=== PATIENT | male | born 1950 | race Caucasian/White ===

== ENCOUNTER 2024-04-03 08:08 | Outpatient (OUT) | payer MEDICARE, SELFPAY ==
--- NOTE | 2024-04-03 08:18 | CT_ITS ---
[address] [address] Patient Name: ALF VERAS MRN: [id number] date: 1950 Sex: M Assigned Patient Location: LAB Current Patient Location: LAB Accession/Order Number: [id number] Exam Date: 04/03/2024 08:35 Report Date: 04/03/2024 12:17 At the request of: COLLEEN CHEUNG Procedure: CT angio abdomen pelvis CT angio abdomen pelvis, 04/03/2024 8:35 AM EDT INDICATION: Aortic Aneurysm Without Rupture I71.40 COMPARISON: Prior CTA of the abdomen dated 04/01/2023 TECHNIQUE: Axial images of the abdomen and pelvis were obtained after the administration of IV contrast. Multiplanar reformatted images were generated and reviewed as needed. 3-D images were obtained. Dose reduction techniques were achieved by using automated exposure control and/or adjustment of mA and/or kV according to patient size and/or use of iterative reconstruction technique. FINDINGS: Lungs: The base of lungs is clear. No pleural effusion is noted. Liver and gallbladder: The liver is unremarkable. There is cholelithiasis without pericholecystic fluid or wall thickening. No enlargement of intra or extrahepatic biliary ducts. Genitourinary system: No hydronephrosis. 7 mm nonobstructive nephrolithiasis in the midpole of the right kidney is noted. Stable simple cyst in the inferior pole of the right kidney. No abnormality of the urinary bladder is noted. Other solid abdominal organs: adrenal glands, pancreas, and spleen are unremarkable. 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 The SMA renal arteries and K[place] are unremarkable. Stable ectasia of the distal abdominal aorta is measured noted measuring 2.6 x 2.1 cm. No aneurysm of the iliac arteries is noted. There is diffuse atherosclerotic changes in the common iliac arteries and distal aorta. Free fluid: There is no free fluid in the abdomen pelvis. Lymph node: No lymph node enlargement by size criteria is noted. Stomach and Bowel: Mild hiatal hernia is noted. No abnormality of the stomach is noted. There is colonic diverticulosis. Otherwise, no significant abnormality of the small or large bowel is noted. Fat-containing umbilical hernia is noted measuring 1.3 cm in transverse diameter. Bone: There is no suspicious osteolytic or osteoblastic lesion. There is diffuse demineralization of bone. Degenerative changes in the SI joints and lower lumbar spine are noted. Sclerotic lesions within the iliac bones likely bone islands are stable. Stable postoperative changes at the level of L2-L3 and L3-L4. 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 Stable ectasia of the infrarenal abdominal aorta. Electronically authenticated by: CORDELL IRIZARRY Date: 04/03/2024 12:17
[2024-04-03 08:23] LABS: Estimated GFR (African America >60 (>=60); Estimated GFR (Non-African Ame >60 (>=60)
== END 2024-04-03 08:09 | disposition home or self-care (01) ==
LOC: LAB 08:08
PROVIDERS: PCP Physician Assistant; Visit Provider Physician Assistant
DX: I72.8 Aneurysm of other specified arteries (principal); I71.40 Abdominal aortic aneurysm, without rupture, unspecified; I10 Essential (primary) hypertension
CPT/HCPCS: 36415; 74174; 82565; Q9967

== ENCOUNTER 2025-01-19 14:51 | Outpatient (OUT) | payer MEDICARE, SELFPAY ==
--- OUTSIDE RECORDS SUMMARY | 2025-01-19 14:58 | XMS_ITS | CCD ---
Author Organization [facility] CliniSyid Care Team Providers Care 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 Name Role Phone Unavailable, Family Physician Primary Care Physi christine Unavailable AURORA CHEUNG Primary Care Physician RHONDA DOTSON Attending Unavailable UGALDE ., DR HOLLINGSWORTH Admitting Unavailable UGALDE ., DR HOLLINGSWORTH Attending Unavailable MISC, DR DIAS Primary Care Unavailable UGALDE ., DR HOLLINGSWORTH Consulting Unavailable JONH LOPEZ Consulting Unavailable UGALDE ., DR HOLLINGSWORTH Admitting Unavailable UGALDE ., DR HOLLINGSWORTH Attending Unavailable MISC, DR DIAS Primary Care Unavailable UGALDE ., DR HOLLINGSWORTH Consulting Unavailable RHONDA DOTSON Admitting Unavailable RHONDA DOTSON Attending Unavailable MISC, DR DIAS Primary Care Unavailable RHONDA DOTSON Consulting Unavailable RHONDA DOTSON Admitting Unavailable RHONDA DOTSON Attending Unavailable MISC, DR DIAS Primary Care Unavailable JOHNATHAN, DR KENNY Zavala Consulting Unavailable RHONDA DOTSON Consulting Unavailable ARIADNE, DR PETERS Admitting Unavailable ARIADNE, DR PETERS Attending Unavailable SLOANC, DR DIAS Primary Care Unavailable ARIADNE, DR PETERS Consulting Unavailable JOHNATHAN, DR KENNY Zavala Consulting Unavailable UGALDE ., DR HOLLINGSWORTH Admitting Unavailable UGALDE ., DR HOLLINGSWORTH Attending Unavailable MISC, DR DIAS Primary Care Unavailable UGALDE ., DR HOLLINGSWORTH Consulting Unavailable CELINA CALVIN Consulting Unavailable MUMTAZ JAUREGUI Consulting Unavailable JONATAN, DR AURORA Bergman Consulting Unavailable MISC, DR DIAS Primary Care Unavailable PAY ., DR NORWOOD Admitting Unavailable PAY ., DR NORWOOD Attending Unavailable PAY ., DR NORWOOD Consulting Unavailable UGALDE ., DR HOLLINGSWORTH Admitting Unavailable UGALDE ., DR HOLLINGSWORTH Attending Unavailable MISC, DR DIAS Primary Care Unavailable UGALDE ., DR HOLLINGSWORTH Consulting Unavailable Tal Monroe MD Unavailable Tal Monroe MD Primary Care Provider [phone] AURORA CHEUNG Primary Care Unavailable AURORA CHEUNG Primary Care Unavailable AURORA CHEUNG Referring Unavailable Nu Velez Attending Unavailable AURORA CHEUNG Primary Care Unavailable Nu Velez Admitting Unavailable Nu Velez Attending Unavailable Nu Velez Referring Unavailable HemAurora Hutton Unavailable Tal Monroe MD Primary Care Provider [phone] NU SAN Attending Unavailable NU SAN Attending Unavailable TAL MONROE Referring Unavailable AURORA CHEUNG Attending Unavailable NU SAN Attending Unavailable ERIC NAJERA Attending Unavailable GEOVANNY BAREU Attending Unavailable AURORA CHEUNG Attending Unavailable ALEX THOMPSON Attending Unavailcha osman Unavailable Unavailable Unavailable Allergies Allergy Classification Reported Allergen(s) Allergy Type Date of Onset Reaction(s) Facility (12 sources) Hydroxychloroquine Drug Allergy 3 [facility] Work Phone: Medications Current Medications Medication Drug Class(es) Dates Sig (Normalized) Sig (Original) acetaminophen 325 mg / oxyCODONE hydrochloride 5 mg oral tablet (1 source) Opioid Agonist Start: 02-02-2020 take 1 tablet by mouth every four to six hours as needed oxyCODONE HCl 5mg & Acetaminophen 325mg * (Percocet 5mg/325mg Tablet *) 1 EACH TABLET Active 1 Oral EVERY 4-6 HRS PRN as needed for post op pain 30 February 02, 2020 2:46pm amitriptyline hydrochloride 25 mg oral tablet (17 sources) Tricyclic Antidepressant Start: 07-31-2024 take 1 tablet by mouth at bedtime amitriptyline (Elavil) 25 MG tablet Indications: Difficulty sleeping Take 1 tablet (25 mg) by mouth at bedtime 100 tablet 3 07/31/2024 Active Start: 07-03-2022 take 1 tablet by sen th at bedtime amitriptyline (Elavil) 25 MG tablet Indications: Difficulty sleeping Take 1 tablet (25 mg) by mouth at bedtime. 100 tablet 3 07/06/2023 Active amLODIPine 10 mg oral tablet (1 source) Dihydropyridine Calcium Channel Ramiro take 10 tablets by mouth once daily Amlodipine Besylate * (Norvasc *) 10 MG TABLET Active 10 Oral EVERY DAY for HTN aspirin 81 mg delayed release oral tablet (1 source) Platelet Aggregation Inhibitor, Nonsteroidal Anti-inflammatory Drug Aspirin * (Aspiri n Enteric Coated *) 81 MG TABLET. Active 81 Oral EVERY DAY for PREVENTIVE carisoprodol 350 mg oral tablet (1 source) Muscle Relaxant Start: 02-02-20 Carisoprodol * (Soma 350mg Tablet*) 350 MG TABLET Active 350 Oral TWICE DAILY NEEDED as needed for spasms 14 February 02, 2020 2:46pm carvedilol 3.125 mg oral tablet (13 sources) alpha-Adrenergic Ramiro, beta-Adrenergic Ramiro Start: 05-12-20 take 1 tablet by mouth in the morning carvedilol (Coreg) 3.125 MG tablet Take 3.125 mg by mouth in the morning and 3.125 mg in the evening. Take with meals. 05/12/2024 Active Start: 01-03-2024 take 1 tablet by sen th twice daily carvedilol 3.125 mg Tab 3.125 mg = 1 tab(s), Oral, BID, Refills(s) 0, High blood pressure Start Date: 01/03/24 Status: Ordered Start: 01-03-2024 carvedilol 3.1 25 mg Tab 3.125 mg = 1 tab(s), Refills(s) 0 Start Date: 01/03/24 Status: Ordered cholecalciferol 0.05 mg oral capsule (5 sources) Vitamin D take 1 capsule by mouth once daily cholecalciferol (Vitamin D-3) 50 MCG (1999 UT) capsule Take 2,000 Units by mouth Daily Active diclofenac sodium 75 mg delayed release oral tablet (17 sources) Nonsteroidal Anti-inflammatory Drug Start: take 1 tablet by mouth in the morning diclofenac (Voltaren) 75 MG EC tablet Indications: Primary osteoarthritis involving multiple joints Take 1 tablet (75 mg) by mouth in the morning and 1 tablet (75 mg) before bedtime. 200 tablet 3 10/23/2024 Active Start: 07-03-2022 take 1 tablet by sen th in the morning diclofenac (Voltaren) 75 MG EC tablet Indications: Primary osteoarthritis involving multiple joints Take 1 tablet (75 mg) by mouth in the morning and 1 tablet (75 mg) before bedtime. 200 tablet 3 07/06/2023 Active esomeprazole 20 mg delayed release oral capsule (12 sources) Proton Pump Inhibitor take 1 capsule by mouth every twenty-four hours as needed esomeprazole (NexIUM) [address] capsule 1 capsule Daily as needed. Active hydroCHLOROthiazide 12.5 mg / lisinopril 20 mg oral tablet (20 sources) Thiazide Diuretic, Angiotensin Converting Enzyme Inhibitor Start: 2023 take 1 tablet by mouth once lisinopril-hydroCH LOROthiazide 20-12.5 MG tablet Indications: Benign essential hypertension (CMS/HCC) Take 1 tablet by mouth every 12 (twelve) hours 200 tablet 3 07/31/2024 Active Start: 07-06-2023 take 1 tablet by sen th once lisinopril-hydroCHLOROthiazide 20-12.5 M G tablet Indications: Benign essential hypertension (CMS/HCC) Take 1 tablet by mouth every 12 (twelve) hours. 200 tablet 3 07/06/2023 Active Start: 07-03-2022 hydrochlorothi azide-lisinopril 12.5 mg-20 mg Tab Refill(s) 0 Start Date: 07/03/22 Status: Ordered Start: 06-14-2015 hydrochlorothi azide-lisinopril 12.5 mg-20 mg Tab 1 tab(s), Oral, Daily, 90 tab(s), Refill(s) 0, High blood pressure Start Date: 06/14/15 Status: Ordered take 1 tablet by sen th twice daily, then take 1 tablet by mouth Lisinopril 20mg & HCTZ 12.5mg * (Zestore tic 20mg/12.5mg *) 1 EACH TABLET Active 1 Oral 2 TIMES DAILY for HTN ammonium lactate 120 mg/ml topical cream (9 sources) Start: 12-15-2023 End: 12-14-2024 ammonium lactate (Lac-Hydrin) 12 % cream Indications: Dry skin Apply topically if needed for dry skin 240 g 3 12/15/2023 11/29/2024 Discontinued (Therapy completed) polyethylene glycol 3350 004256 mg / potassium chloride 1480 mg / sodium bicarbonate 5720 mg / sodium chloride 09198 mg powder for oral solution (1 source) Osmotic Laxative Start: 01-03-2024 take 1 dose by mouth once NuLYTELY [place] oral powder for reconstitution See Instructions, 1 EA, Refill(s) 0, Per physcisians instructions prior to colonoscopy, [facility], 190, cm, 01/03/24 10:17:00 EST, Height/Length Dosing, 101, kg, 01/03/24 10:17:00 EST, Weight Dosing Start Date: 01/03/24 Status: Ordered pyridoxine (12 sources) Start: 07-03-2022 take 1 tablet by mouth once daily Pyridoxine HCl (VITAMIN B-6 PO) Take 1 tablet by mouth 1 (one) time each day. 07/03/2022 Active Start: 07-03-2022 take 1 tablet by sen th once daily Pyridoxine HCl (VITAMIN B-6 PO) Take 1 tablet by mouth 1 (one) time each day. 0 07/03/2022 Active rosuvastatin calcium 20 mg oral tablet (18 sources) HMG-CoA Reductase Inhibitor Start: 08-01-2024 take 1 tablet by mouth once daily rosuvastatin (Crestor) 20 MG tablet Indications: Mixed hyperlipidemia (CMS/HCC) Take 1 tablet (20 mg) by mouth 1 (one) time each day at the same time 100 tablet 3 08/01/2024 Active Start: 07-06-2023 take 1 tablet by sen th once daily rosuvastatin (Crestor) 20 MG tablet Indications: Mixed hyperlipidemia (CMS/HCC) Take 1 tablet (20 mg) by mouth 1 (one) time each day at the same time. 100 tablet 3 07/06/2023 Active Start: 06-14-2015 take 1 tablet by sen th once daily Crestor 10 mg Tab 10 mg = 1 tab(s), Oral, Daily, # 90 tab(s), Refills(s) 0, High cholesterol Start Date: 06/14/15 Status: Ordered Rosuvastatin Pedro cium * (Crestor *) 20 MG TABLET Active 20 Oral AT BEDTIME tamsulosin hydrochloride 0.4 mg oral capsule (2 sources) alpha-Adrenergic Ramiro Start: 07-03-2022 take 1 capsule by mouth twice daily tamsulosin 0.4 mg Cap 0.4 mg = 1 cap(s), Oral, BID, # 180 cap(s), Refills(s) 3, Pharmacy: [facility], 190, cm, 07/03/22 9:10:00 EDT, Height/Length Dosing, 89, kg, 07/03/22 9:10:00 EDT, Weight Dosing Start Date: 07/03/22 Status: Ordered take 0.4 capsule by mouth at bed time Tamsulosin HCl * (Flomax *) 0.4 MG CAP Active 0.4 Oral AT BEDTIME Vitamin B6 (5 sources) Start: 07-03-2022 Vitamin B6 Ora l, Daily, Refills(s) 0, Prophylaxis Start Date: 07/03/22 Status: Ordered Start: 07-03-2022 Vitamin B6 Riri ly, Refills(s) 0 Start Date: 07/03/22 Status: Ordered Vitamin D3 (5 sources) Start: 07-03-2022 Vitamin D3 Ora l, Daily, Refills(s) 0, Prophylaxis Start Date: 07/03/22 Status: Ordered Start: 07-03-2022 Vitamin D3 Ref ills(s) 0 Start Date: 07/03/22 Status: Ordered Completed/Discontinued Medications Medication Drug Class(es) Dates Sig (Normalized) Sig (Original) acetaminophen 325 mg / HYDROcodone bitartrate 7.5 mg oral tablet (1 source) Opioid Agonist End: 02-02-2020 take 1 tablet by mouth every four hours as needed HYDROcodone Bit 7.5mg & Acetaminophen 325mg * (NORCO 7.5-325mg *) 1 EACH TABLET Discontinued 1 Oral EVERY 4 HOURS NEEDED as needed for Pain February 02, 2020 2:35pm Problems Active Problems Problem Classification Problem Date Documented Date Episodic/Chronic Administrative/social admission (2 sources) Patient encounter status; Translations: [Other specified counseling] 11-29-2024 Episodic Anxiety disorders (14 sources) Generalized anxiety disorder; Translations: [Generalized anxiety disorder] Onset: 05-18-2023 05-18-2023 Chronic Aortic; peripheral; and visceral artery aneurysms (20 sources) Aneurysm of other specified arteries; Translations: [Thoracic aortic ectasia] Onset: 02-27-2023 Chronic Disorders of lipid metabolism (19 sources) Hyperlipidemia; Translations: [Hyperlipidemia, unspecified] Onset: 06-02-2022 05-18-2023 Chronic Essential hypertension (20 sources) Hypertensive disorder; Translations: [Essential (primary) hypertension] Onset: 11-26-2008 Chronic Heart valve disorders (1 source) Nonrheumatic mitral (valve) insufficiency; Translations: [NONRHEUMATIC MITRAL INSUFFICIENCY] Onset: 01-28-2023 Chronic Hyperplasia of prostate (20 sources) Benign prostatic hyperplasia; Translations: [Benign prostatic hypertrophy with outflow obstruction] Onset: 01-28-2009 Resolved: 05-29-2024 07-03-2022 Chronic Hypertension with complications and secondary hypertension (1 source) Hypertensive heart disease without heart failure; Translations: [HTN HEART DISEASE W/O HEART FAIL] Onset: 03-07-2023 Chronic Osteoarthritis (20 sources) Unspecified osteoarthritis, unspecified site; Translations: [Degenerative joint disease involving multiple joints] Onset: 09-03-2022 05-18-2023 Chronic Other and ill-defined heart disease (3 sources) Cardiomegaly; Translations: [Cardiomegaly] Onset: 01-12-2023 Chronic Other diseases of bladder and urethra (1 source) Other specified disorders of bladder; Translations: [OTHER SPECIFIED DISORDERS BLADDER] Onset: 07-21-2022 Chronic Other diseases of kidney and ureters (1 source) Urinary tract obstruction; Translations: [Other obstructive and reflux uropathy] Onset: 09-21-2022 Episodic Other ear and sense organ disorders (3 sources) Asymmetrical sensorineural hearing loss; Translations: [Sensorineural hearing loss, bilateral] 12-29-2023 Chronic Other nervous system disorders (15 sources) Idiopathic peripheral neuropathy; Translations: [Hereditary and idiopathic neuropathy, unspecified] Onset: 05-18-2023 05-18-2023 Chronic Other nervous system disorders (1 source) Neuropathy; Translations: [Polyneuropathy, unspecified] 09-15-2024 Chronic Other nutritional; endocrine; and metabolic disorders (3 sources) Overweight in adulthood with body mass index of 25 or more but less than 30; Translations: [Body mass index (BMI) 26.0-26.9, adult] Onset: 01-03-2024 Episodic Other skin disorders (1 source) Callosity; Translations: [Corns and callosities] 09-15-2024 Episodic Residual codes; unclassified (1 source) History of operative procedure on lumbar spinal structure; Translations: [Status post lumbar spine operative procedure for decompression of spinal cord] Episodic Residual codes; unclassified (1 source) Family history of malignant neoplasm of digestive organ; Translations: [Family history of malignant neoplasm of digestive organs] Onset: 01-03-2024 Episodic Rheumatoid arthritis and related disease (20 sources) Rheumatoid arthritis; Translations: [Rheumatoid arthritis, unspecified] Onset: 05-18-2023 05-18-2023 Chronic Spondylosis; intervertebral disc disorders; other back problems (20 sources) Arthropathy of spinal facet joint; Translations: [Spondylosis without myelopathy or radiculopathy, lumbosacral region] Onset: 11-21-2019 Resolved: 05-29-2024 05-18-2023 Chronic Unclassified (1 source) Patient encounter status; Translations: [Encounter for pre-operative examination] Unclassified (1 source) CONTACT W/AND (SUSP) EXPOS COVID-19; Translations: [CONTACT W/AND (SUSP) EXPOS COVID-19] Onset: 09-03-2022 Past or Other Problems Problem Classification Problem Date Documented Da te Episodic/Chronic Biliary tract disease (14 sources) Cholelithiasis without obstruction; Translations: [Calculus of gallbladder without cholecystitis without obstruction] Onset: 3 05-19-2023 Episodic Calculus of urinary tract (14 sources) Kidney stone; Translations: [Calculus of kidney] Onset: 3 05-19-2023 Episodic Diabetes mellitus without complication (20 sources) Impaired glucose tolerance; Translations: [Impaired glucose tolerance (oral)] Onset: 1 Resolved: 4 05-18-2023 Episodic Genitourinary symptoms and ill-defined conditions (20 sources) Delay when starting to pass urine; Translations: [Feeling of incomplete bladder emptying] Onset: 2 07-03-2022 Episodic Mood disorders (12 sources) Mood disorders Onset: 3 Resolved: 5 05-19-2023 Mycoses (13 sources) Onychomycosis; Translations: [Tinea unguium] Onset: 3 Resolved: 4 06-09-2023 Episodic Nonspecific chest pain (14 sources) Chest pain; Translations: [Chest pain, unspecified] Onset: 3 11-24-2023 Episodic Other acquired deformities (14 sources) Spondylolisthesis; Translations: [Spondylolisthesis, site unspecified] Onset: 3 05-18-2023 Episodic Other aftercare (1 source) terminal gauger (current) use of anticoagulants; Translations: [GENERAL OFFICE DISPATCHER CURRNT USE ANTICOAGULANTS] Onset: 2 Episodic Other aftercare (1 source) Other termite treater helper (current) drug therapy; Translations: [OTH DETENTION CURRENT DRUG THERAPY] Onset: 2 Episodic Other and unspecified benign neoplasm (16 sources) History of polyp of colon; Translations: [Personal history of colonic polyps] Onset: 4 Episodic Other and unspecified benign neoplasm (2 sources) Melanocytic nevi of other parts of face; Translations: [Benign neoplasm of skin of other and unspecified parts of face] 07-13-2024 Episodic Other and unspecified benign neoplasm (2 sources) Melanocytic nevus of trunk; Translations: [Melanocytic nevi of trunk] 07-13-2024 Episodic Other and unspecified benign neoplasm (2 sources) Senile angioma; Translations: [Hemangioma of skin and subcutaneous tissue] 07-13-2024 Episodic Other connective tissue disease (15 sources) Pain in both feet; Translations: [Pain in right foot] Onset: 3 06-09-2023 Episodic Other connective tissue disease (12 sources) Pain in upper limb; Translations: [Pain in arm, unspecified] Onset: 3 Resolved: 5 11-24-2023 Episodic Other diseases of kidney and ureters (1 source) Other obstructive and reflux uropathy; Translations: [OTHER OBSTRUCTIVE AND REFLUX UROPATHY] Onset: 2 Episodic Other gastrointestinal disorders (14 sources) Esophageal dysphagia; Translations: [Other dysphagia] Onset: 3 05-18-2023 Episodic Other nervous system disorders (12 sources) Bilateral carpal tunnel syndrome; Translations: [Carpal tunnel syndrome, bilateral upper limbs] Onset: 6 Resolved: 4 11-24-2023 Chronic Other nervous system disorders (12 sources) Burning feet; Translations: [Other disturbances of skin sensation] Onset: 3 Resolved: 4 05-18-2023 Episodic Other nervous system disorders (14 sources) Skin sensation disturbance; Translations: [Unspecified disturbances of skin sensation] Onset: 1 11-24-2023 Episodic Other nutritional; endocrine; and metabolic disorders (17 sources) Overweight; Translations: [Overweight] Onset: 3 05-18-2023 Episodic Other screening for suspected conditions (not mental disorders or infectious disease) (20 sources) Electrocardiogram abnormal; Translations: [Abnormal electrocardiogram [ECG] [EKG]] Onset: 4 Resolved: 5 05-18-2023 Episodic Other skin disorders (2 sources) Seborrheic keratosis; Translations: [Other seborrheic keratosis] 07-13-2024 Episodic Other skin disorders (2 sources) Lentiginosis; Translations: [Other melanin hyperpigmentation] 07-13-2024 Episodic Other skin disorders (2 sources) Actinic keratosis; Translations: [Actinic keratosis] 07-13-2024 Episodic Other upper respiratory infections (12 sources) Acute upper respiratory infection; Translations: [Acute upper respiratory infection, unspecified] Onset: 3 Resolved: 4 11-24-2023 Episodic Residual codes; unclassified (14 sources) Difficulty sleeping ; Translations: [Sleep disorder, unspecified] Onset: 3 05-18-2023 Episodic Residual codes; unclassified (15 sources) Family history of cancer of colon; Translations: [Family history of malignant neoplasm of digestive organs] Onset: 4 01-03-2024 Episodic Residual codes; unclassified (1 source) Other specified postprocedural states; Translations: [Status post lumbar spine operative procedure for decompression of spinal cord] Spondylosis; intervertebral disc disorders; other back problems (20 sources) Disorder of lumbar disc; Translations: [Cervical nerve root pain] Onset: 6 Resolved: 4 05-18-2023 Episodic Results Test Name Value Interpretation Reference Range Facility No Panel Informationon 07-13 [facility] Result Letter Officeon 03-06 Result Letter Office March 06, 2024 ALF [address]AY [address] [place] [id number] : 1950 Below is a summary of the results of your recent colonoscopy. Your results have been sent to your primary care provider along with recommendations on when the procedure should be repeated. COLONOSCOPY WITH POLYP REMOVAL ___ Normal - NO CANCER Type of polyp tubular adenoma - not cancer but can become cancer if not removed. Additional colonoscopies will be necessary to monitor your condition and assure that new polyps have not developed. COLONOSCOPY WITH BIOPSIES(not polyps) ___Normal ___Other - appointment needed - please contact office to schedule an appointment. Based on your results we are recommending you repeat the procedure in _ You will be placed in our reminder system and will receive a reminder letter prior to your next due date. [facility] General Surgery [phone] Normal [facility] Operative Reporton Operative Report Patient: ALF GARIBAY Age: 73 years Sex: Male : 1950 Associated Diagnoses: None Author: Nu Velez MD Pre-Procedure Procedure Date 02/14/2024 07:56:00 . Procedure Type: Colonoscopy with removal of tumor(s), polyp(s), or other lesion(s) by cold snare technique. Procedure provider Performed by Nu Velez MD. Current history and physical Documented on chart. Colonoscopy ([id number]) on 02/14/2024 at 73 Years. TURP - Transurethral resection of prostate ([id number]) on 09/03/2022 at 72 Years. TURP - Transurethral resection of prostate ([id number]) in 2008 at 59 Years. Appendectomy ([id number]). Colonoscopy ([id number]). Bilateral after-cataract ([id number]). Tonsillectomy ([id number]). Hernia ([id number]).. Past Medical History Active Hypertension (6954195080) Hyperlipidemia (27051981). Family History Colon cancer stage 1 Father . Procedure History Colonoscopy ([id number]) on 02/14/2024 at 73 Years. TURP - Transurethral resection of prostate ([id number]) on 09/03/2022 at 72 Years. TURP - Transurethral resection of prostate ([id number]) in 2008 at 59 Years. Appendectomy ([id number]). Colonoscopy ([id number]). Bilateral after-cataract ([id number]). Tonsillectomy (538116871). Hernia ([id number]).. Colorectal neoplasm risk assessment High risk Family history colon cancer. , Personal history of colon polyps. . Informed Consent After discussing the rationale, risks and benefits, and alternatives to this procedure, the patient provided signed consent for the procedure. Pre-procedure diagnosis: History of colon polyps. Medications (Selected) Documented Medications Documented Crestor 10 mg Tab: 10 mg = 1 tab(s), Oral, Daily, # 90 tab(s), Refills(s) 0, High cholesterol Vitamin B6: Oral, Daily, Refills(s) 0, Prophylaxis Vitamin D3: Oral, Daily, Refills(s) 0, Prophylaxis amitriptyline 25 mg Tab: 25 mg = 1 tab(s), Oral, Once a day (at bedtime), Refills(s) 0, Anxiety carvedilol 3.125 mg Tab: 3.125 mg = 1 tab(s), Oral, BID, Refills(s) 0, High blood pressure diclofenac sodium 75 mg Oral EC Tab: 75 mg = 1 tab(s), Oral, BID, Refills(s) 0, Arthritis hydrochlorothiazide-l isinopril 12.5 mg-20 mg Tab: 1 tab(s), Oral, Daily, 90 tab(s), Refill(s) 0, High blood pressure ASA Classification: Class III. . Monitoring: See anesthesia record. . Procedure The procedure was performed in the hospital. See anesthesia record for sedation given during procedure. Rectal exam was performed and was normal. The patient was positioned starting in the left lateral decubitus position. Endoscope type used was an adult-size. The endoscope was lubricated then introduced through the anus. The scope was advanced to the cecum. No difficulties encountered during the procedure. The bowel preparation quality was good and was adequate (see polyps greater than or equal to 6 millimeters). The patient tolerated the procedure well. Findings Cecal polyp and rectal polyp both between 3 and 5 mm both removed with cold snare successfully. Post-Procedure Complications: none. Estimated blood loss: none. Specimens: sent to pathology. Devices/ implants: none left in place. Impression and Plan Recommendations: Repeat colonoscopy:: In 3 years. Follow-up:: Await biopsy results in 3-5 days. Diet:: Regular diet. Medication resumption:: Continue current medications. Return to activities:: After 24 hours. [facility] Comment on above: Result Comment: Manolo raglandally Signed By: Rosie MEJIA, Nu Beatty\Date and Time Signed: 02/25/24 07:59 EDT Reminderson 02-18-2024 Reminders - From: Lima Abreu MA To: N - Clinical; Sent: 02/18/2024 14:58:08 EDT Show up: 02/13/2027 14:58:00 EDT Subject: Colonoscopy recall 3 years Reminder/Recall Last colonoscopy: 02/14/2024 Repeat: 3 years Reason: Tub Adenoma [facility] IntraOperative Documentson 0 02-16-2024 IntraOperative Documents [id number]# 1.00TIFF Normal [facility] Progress Note-Physicianon Progress Note-Physician Patient: ALF GARIBAY Age: 73 years Sex: Male : 1950 Associated Diagnoses: None Author: Perfecto Morris Jr, DO Preoperative Information Anesthesia Preop Info: Time patient last ate or drank 02/14/2024 00:00:00. Anesthesia history: Patient history: None. Family history+: None. Informed consent: Signed by patient. Re-evaluation prior to induction: Initial evaluation reviewed: No significant change. Review of Systems Eye: Negative except as documented in history of present illness. Ear/Nose/Mouth/Throat : Negative except as documented in history of present illness. Respiratory: Negative except as documented in history of present illness. Cardiovascular: Negative except as documented in history of present illness. Musculoskeletal: Negative except as documented in history of present illness. Neurologic: Negative except as documented in history of present illness. Health Status Allergies: Allergic Reactions (Selected) No Known Allergies Problem list: All Problems BMI 26.0-26.9,adult / SNOMED CT 4974239843 / Confirmed Overweight / SNOMED CT 798218284 / Confirmed Hypertension / SNOMED CT 7042301174 / Confirmed Hyperlipidemia / SNOMED CT 50065115 / Confirmed History of colon polyps / SNOMED CT 1134701363 / Confirmed Family history of colon cancer / SNOMED CT 981038143 / Confirmed Urinary hesitancy / SNOMED CT 595580464 / Confirmed BPH with urinary obstruction / SNOMED CT 3370673265 / Confirmed Histories Procedure history: TURP - Transurethral resection of prostate (140754244) on 09/03/2022 at 72 Years. TURP - Transurethral resection of prostate (161146515) in 2008 at 59 Years. Appendectomy (684961409). Colonoscopy (990728096). Bilateral after-cataract (5599625369). Tonsillectomy (637533132). Hernia (1463205579). Social History Social & Psychosocial Habits Tobacco 01/03/2024 Tobacco Use: Never (less than 100 in l Smokeless tobacco use: Never . Physical Examination Airway: Mallampati classification: II (soft palate, fauces, uvula visible). Respiratory: adequate air exchange. Cardiovascular: Regular rhythm. Plan [place] [employer]hesiologists (ASA) physical status classification: Class II. Anesthetic Preoperative Plan: Anesthesia General. [facility] Comment on above: Result Comment: Elec tronically Signed By: Perfecto Morris Jr, DO\.br\Date and Time Signed: 02/16/24 15:02 EDT Progress Note-Physician Patient: ALF GARIBAY Age: 73 years Sex: Male : 1950 Associated Diagnoses: None Author: Perfecto Morris Jr, DO Postoperative Information Postoperative disposition: Postoperative disposition: To PACU. Optimetrix number: Optimetrix number [phone]. Anesthetic utilized: General. Health Status Allergies: Allergic Reactions (Selected) No Known Allergies Physical Examination Vital Signs 02/14/2024 9:05 EDT Heart Rate Monitored 67 bpm Respiratory Rate Monitored 20 br/min Systolic Blood Pressure 126 mmHg Diastolic Blood Pressure 97 mmHg HI Mean Arterial Pressure, Cuff 107 mmHg SpO2 91 % 02/14/2024 8:55 EDT Heart Rate Monitored 65 bpm Respiratory Rate Monitored 17 br/min Systolic Blood Pressure 122 mmHg Diastolic Blood Pressure 82 mmHg Mean Arterial Pressure, Cuff 95 mmHg SpO2 93 % 02/14/2024 8:50 EDT Heart Rate Monitored 68 bpm Respiratory Rate Monitored 15 br/min Systolic Blood Pressure 125 mmHg Diastolic Blood Pressure 80 mmHg Mean Arterial Pressure, Cuff 95 mmHg SpO2 92 % 02/14/2024 8:45 EDT Heart Rate Monitored 64 bpm Respiratory Rate Monitored 18 br/min Systolic Blood Pressure 128 mmHg Diastolic Blood Pressure 79 mmHg Mean Arterial Pressure, Cuff 95 mmHg SpO2 93 % 02/14/2024 8:40 EDT Temperature Temporal Artery 36.2 DegC LOW Heart Rate Monitored 73 bpm Respiratory Rate Monitored 13 br/min Systolic Blood Pressure 127 mmHg Diastolic Blood Pressure 83 mmHg Mean Arterial Pressure, Cuff 98 mmHg SpO2 95 % Pain Assessment: Controlled. General: Awake, Alert, Appropriate. Respiratory: Adequate air exchange. Cardiovascular: Stable, Normal peripheral perfusion. Neurological: Normal sensory function, Normal motor function. Assessment Anesthetic outcome No anesthetic complications noted. Adequate pain relief. able to void without difficulty, able to ambulate with assist, tolerating PO intake, no N/V. Review / Management Condition: Stable. Plan Transfer/Discharge: Transfer/Discharge Discharge when meets criteria ( To home ). [facility] Comment on above: Result Comment: Elec tronically Signed By: Perfecto Morris Jr, DO\.br\Date and Time Signed: 02/16/24 11:25 EDT Consenton 02-15-2024 Consent [id number]# 1.00TIFF [facility] Discharge Instructionson Discharge Instructions [id number]# 1.00TIFF [facility] Main OR Intraoperative Recor don 02-15-2024 Main OR Intraoperative Record IntraOp Document Type FT Summary Primary Physician: Nu Velez MD Finalized Date/Time: 02/15/24 08:45:12 Pt. Name: ALF GARIBAY/Sex: 1950 Male Med Rec #: [id number] Physician: Nu Velez MD Financial #: [id number] Pt. Type: O Room/Bed: / Admit/Disch: 02/14/24 06:52:27 - 02/14/24 23:59:59 Institution: Case Times FT Entry 1 Patient Times In Room 02/14/24 08:06:00 Out Room 02/14/24 08:39:00 Procedure Times Start 02/14/24 08:11:00 Stop 02/14/24 08:36:00 Anesthesia Times Start 02/14/24 08:06:00 Stop 02/14/24 08:39:00 Time at [facility] 02/14/24 08:24:00 Last Modified By: Javi RN, Danna Franco 02/14/24 08:39:10 General Comments: 02/15/24 Chart opened for charge review per Cash Hernandez RN. [place] Case Attendance FT Entry 1 Entry 2 Entry 3 Case Attendee Sarah KAUR, FRAME COVERER, Queen Rosie MEJIA, Nu Caldwell RN, Danna Franco NColby Role Performed FRAME COVERER Surgeon - Primary Automatic Log Cut Off Sawyer - Primary Time In 02/14/24 08:06:00 02/14/24 08:06:00 02/14/24 08:06:00 Time Out 02/14/24 08:39:00 02/14/24 08:39:00 02/14/24 08:39:00 Procedure COLONOSCOPY(.) COLONOSCOPY(.) COLONOSCOPY(.) Comments Dr. Morris supervising case Last Modified By: Javi RN, Danna Caldwell RN, Danna Caldwell RN, Danna F 02/14/24 08:39:15 F 02/14/24 08:39:15 F 02/14/24 08:39:15 Entry 4 Entry 5 Case Attendee Trevor ALCANTAR, Reji Herrera Role Performed Scrub - Primary Staff - Other Time In 02/14/24 08:06:00 02/14/24 08:24:00 Time Out 02/14/24 08:39:00 02/14/24 08:39:00 Procedure COLONOSCOPY(.) COLONOSCOPY(.) Comments help in room Last Modified By: Javi RN, Danna Caldwell RN, Danna F 02/14/24 08:39:15 F 02/14/24 08:39:15 Perioperative Protocols FT Pre-Care Text: Implements protective measures prior to operative or invasive procedure, confirms identity before the operative or invasive procedure, verifies operative procedure, surgical site, and laterality Entry 1 Procedure(s) COLONOSCOPY(.) Patient Identity Birthday, ID Band Verified (select at Check, Patient least 2): Participation Consents / H and P Anesthesia Consent, Operative Site N/A Verified HandP, Surgery/Procedure Marking Verified Consent Surgical Site No Laterality Verified n/a Verified Procedure Verified Yes Correct Patient Yes Position Verified Availability Equipment, Medication Prep Dry n/a Verified (If Applicable) PreOp Antibiotic No Time Out Sarah KAUR, ARETHA, Queen Joyce Participants Дмитрий, Nu Velez MD, Javi HUSAIN, Trevor Tolbert CST, Kelly Bergman Time Out Complete 02/14/24 08:07:00 Outcomes Met? Yes Last Modified By: Danna Caldwell RN 02/14/24 08:09:13 Post-Care Text: The patient is free from signs and symptoms of injury caused by extraneous objects Allergy Information FT Pre-Care Text: Verifies allergies Entry 1 Allergies Reviewed? Yes Allergies Reviewed Self/Patient With Outcomes Met? Yes Last Modified By: Danna Caldwell RN 02/14/24 08:09:18 Post-Care Text: The patient received appropriate medication(s) safely administered during the perioperative period Surgical Procedures FT Entry 1 Procedure Description Procedure COLONOSCOPY Modifiers . Surgeon Description Colonoscopy with cecal polypectomy, rectal polypectomy. Primary Procedure Yes Primary Surgeon Rosie MEJIA, Nu Johnson Start 02/14/24 08:11:00 Stop 02/14/24 08:36:00 Anesthesia Type General Surgical Service General Wound Class 2 - Clean-Contaminated Last Modified By: Danna Caldwell RN 02/14/24 08:36:20 General Case Data FT Pre-Care Text: Classifies surgical wound, implements aseptic technique, initiates traffic control Entry 1 Case Information OR ENDO 2 FT Case Level Level 2 Wound Class 2 - Clean-Contaminated Specialty General ASA Class 2 Preop Diagnosis HIstory of colon Postop Same As Preop No polyps, family history of colon cancer Postop Diagnosis Cecal polyp, rectal Outcomes Met? Yes polyp Last Modified By: Danna Caldwell RN 02/14/24 08:35:02 Post-Care Text: The patient is free from signs and symptoms of infection Skin Assessment (Pre Procedure) FT Pre-Care Text: Implements protective measures to prevent skin/ tissue injury due to thermal or mechanical sources Evaluates for signs and symptoms of physical injury to skin and tissue Entry 1 Skin Integrity Intact, [place], Warm, and Skin Abnormality No Dry Outcomes Met? Yes Last Modified By: Danna Caldwell RN 02/14/24 08:09:52 Post-Care Text: The patient is free from signs and symptoms of injury caused by extraneous objects Patient Positioning FT Pre-Care Text: Identifies physical alterations that require additional precautions for procedure-specific positioning, verifies presence of prosthetics or corrective devices, positions the patient, evaluates the patient for signs and symptoms of injury as a result of positioning (more content not included)... Normal [facility] Postoperative Documentson Postoperative Documents [id number]# 1.00TIFF [facility] Consent for Treatmenton 01-21 Consent for Treatment [id number]#1 .00TIFF [facility] Discharge Instructionson Discharge Instructions ALF GARIBAY :1950 Visit Date:02/14/2024 Inpatient Discharge Instructions Your Care Team Admitting Physician - Nu Velez MD Referring Physician - Nu Velez MD Reason for Your Visit HX OF COLON POLYPS FAMILY HX OF COLON CANCER Your Diagnosis Family history of colon cancer History of colon polyps Tests Performed Pathology Tissue Exam -- Results Pending -- Please visit your patient portal for your results or contact your primary care physician. This Is Your Medications List amitriptyline (amitriptyline 25 mg Tab) carvedilol (carvedilol 3.125 mg Tab) cholecalciferol (Vitamin D3) diclofenac (diclofenac sodium 75 mg Oral EC Tab) hydrochlorothiazide-l isinopril (hydrochlorothiazide- lisinopril 12.5 mg-20 mg Tab) pyridoxine (Vitamin B6) rosuvastatin (Crestor 10 mg Tab) Procedure History Colonoscopy (02/14/2024), TURP - Transurethral resection of prostate (09/03/2022), TURP - Transurethral resection of prostate (2008), Appendectomy, Bilateral after-cataract, Colonoscopy, Hernia, Tonsillectomy. What to do next Instructions From Your Doctor Event Name Event Result Pharmacy Information [facility] New Follow Up Appointments after Discharge Follow Up with Rosie MEJIA, NEGAR Mireles When: Within 1 to 2 weeks, only if needed Comments: Call for any problems. Where: [facility], [address] [address] [phone] Medications What How Much When Instructions Next Dose Unchanged amitriptyline (amitriptyline 25 mg Tab) 1 Tablets By Mouth Once a day (at bedtime) Unchanged carvedilol (carvedilol 3.125 mg Tab) 1 Tablets By Mouth 2 times a day Unchanged cholecalciferol (Vitamin D3) By Mouth Every day Unchanged diclofenac (diclofenac sodium 75 mg Oral EC Tab) 1 Tablets By Mouth 2 times a day Unchanged hydrochlorothiazide-l isinopril (hydrochlorothiazide- lisinopril 12.5 mg-20 mg Tab) 1 Tablets By Mouth Every day Unchanged pyridoxine (Vitamin B6) By Mouth Every day Unchanged rosuvastatin (Crestor 10 mg Tab) 1 Tablets By Mouth Every day Test Results No qualifying data available. Allergies No Known Allergies Problems Ongoing - Any problem that you are currently receiving treatment for. BMI 26.0-26.9,adult BPH with urinary obstruction Family history of colon cancer History of colon polyps Hyperlipidemia Hypertension Overweight Urinary hesitancy Education Materials Colon Polyps Colon polyps are tissue growths inside the colon, which is part of the large intestine. They are one of the types of polyps that can grow in the body. A polyp may be a round bump or a mushroom-shaped growth. You could have one polyp or more than one. Most colon polyps are noncancerous (benign). However, some colon polyps can become cancerous over time. Finding and removing the polyps early can help prevent this. What are the causes? The exact cause of colon polyps is not known. What increases the risk? The following factors may make you more likely to develop this condition: ? Having a family history of colorectal cancer or colon polyps. ? Being older than 45 years of age. ? Being younger than 45 years of age and having a significant family history of colorectal cancer or colon polyps or a genetic condition that puts you at higher risk of getting colon polyps. ? Having inflammatory bowel disease, such as ulcerative colitis or Crohn's disease. ? Having certain conditions passed from parent to child (hereditary conditions), such as: ? Familial adenomatous polyposis (FAP). ? Mchugh syndrome. ? Turcot syndrome. ? Peutz?Jeghers syndrome. ? MUTYH-associated polyposis (MAP). ? Being overweight. ? Certain lifestyle factors. These include smoking cigarettes, drinking too much alcohol, not getting enough exercise, and eating a diet that is high in fat and red meat and low in fiber. ? Having had childhood cancer that was treated with radiation of the abdomen. What are the signs or symptoms? Many times, there are no symptoms. If you have symptoms, they may include: ? Blood coming from the rectum during a bowel movement. ? Blood in the stool (feces). The blood may be bright red or very dark in color. ? Pain in the abdomen. ? A change in bowel habits, such as constipation or diarrhea. How is this diagnosed? This condition is diagnosed with a colonoscopy. This is a procedure in which a lighted, flexible scope is inserted into the opening between the buttocks (anus) and then passed into the colon to examine the area. Polyps are sometimes found when a colonoscopy is done as part of routine cancer screening tests. How is this treated? This condition is treated by removing any polyps that are found. Most polyps can be removed during a colonoscopy. Those polyps will then be tested for cancer. Additional treatment may be needed depending on the result (more content not included)... [facility] Comment on above: Result Comment: Elec tronically Signed By: Ashley Sierra I\.br\Date and Time Signed: 02/14/24 08:47 EDT Inpatient Patient Summaryon 02-14-2024 Inpatient Patient Summary [place] [id number] [facility] Clinical Discharge Instructions PERSON INFORMATION Name: ALF GARIBAY PHYSICIANS Admitting Physician: Nu Velez MD Attending Physician: Nu Velez MD PCP: [facility] Discharge Diagnosis: Comment: PATIENT EDUCATION INFORMATION Instructions: Colonoscopy, Adult, Care After Medication Leaflets: Follow up: MEDICATION LIST Medications to Continue with No Changes Other Medications amitriptyline (amitriptyline 25 mg Tab) 1 Tablets By Mouth once a day (at bedtime). carvedilol (carvedilol 3.125 mg Tab) 1 Tablets By Mouth 2 times a day. cholecalciferol (Vitamin D3) By Mouth every day. diclofenac (diclofenac sodium 75 mg Oral EC Tab) 1 Tablets By Mouth 2 times a day. hydrochlorothiazide-l isinopril (hydrochlorothiazide- lisinopril 12.5 mg-20 mg Tab) 1 Tablets By Mouth every day. pyridoxine (Vitamin B6) By Mouth every day. rosuvastatin (Crestor 10 mg Tab) 1 Tablets By Mouth every day. Comment: Normal [facility] Main OR PACU I Recordon 01-21 Main OR PACU I Record PACU Phase I Docum ent Type FT Summary Primary Physician: uN Velez MD Finalized Date/Time: 02/14/24 09:17:24 Pt. Name: ALF GARIBAY Eagle Ng/Sex: 1950 Male Med Rec #: [id number] Physician: Nu Velez MD Financial #: [id number] Pt. Type: O Room/Bed: / Admit/Disch: 02/14/24 06:52:27 - Institution: Case Times PACU I FT Pre-Care Text: Identifies barriers to communication and implements measures to provide psychological support Develops individualized plan of care, and ensures continuity of care Maintains patient's dignity and privacy, and maintains patient confidentiality Identifies and reports philosophical, cultural, and spiritual beliefs and values Identifies individual values and wishes concerning care Implements aseptic technique, and administers prescribed antibiotic therapy and immunizing agents as ordered Evaluates postoperative tissue perfusion Implements thermoregulation measures, and monitors body temperature Evaluates postoperative respiratory status Evaluates postoperative cardiac status Evaluates postoperative neurological status Assesses pain control, collaborated in initiating patient-controlled analgesia and implements alternative methods of pain control Verifies allergies, administers prescribed medications and solutions, evaluates response to medications Entry 1 In PACU I 02/14/24 08:40:00 Discharge from PACU 02/14/24 09:10:00 I Outcomes Met? Yes Last Modified By: Ashley Sierra I 02/14/24 09:17:11 Post-Care Text: The patient demonstrates knowledge of the expected response to the operative or invasive procedure The patient's care is consistent with the individualized perioperative plan of care The patient's right to privacy is maintained The patient's value system, lifestyle, ethnicity, and culture are considered, respected, and incorporated into the perioperative plan of care The patient participates in decisions affecting his or her perioperative plan of care The patient is free from signs and symptoms of infection The patient has wound/tissue perfusion consistent with or improved from baseline levels established preoperatively The patient is at or returning to normothermia at the conclusion of the immediate postoperative period The patient's respiratory function is consistent with or improved from baseline levels established preoperatively The patient's cardiovascular status is consistent with or improved from baseline levels established preoperatively The patient's cardiovascular status is consistent with or improved from baseline levels established preoperatively The patient demonstrates and/or reports adequate pain control throughout the perioperative period The patient received appropriate medication(s), safely administered during the perioperative period Acuity Level PACU I FT Entry 1 Start Time 02/14/24 08:40:00 Stop Time 02/14/24 09:10:00 Acuity Level Acuity Level I Last Modified By: Ashley Sierra I 02/14/24 09:17:21 Finalized By: Ashley Sierra I Document Signatures Signed By: Ashley Sierra I 02/14/24 09:17 [facility] Main OR Preoperative Recordo n 02-14-2024 Main OR Preoperative Record Holding Area Document Type FT Summary Primary Physician: Nu Velez MD Finalized Date/Time: 02/14/24 07:09:09 Pt. Name: ALF GARIBAY/Sex: 1950 Male Med Rec #: [id number] Physician: Nu Velez MD Financial #: [id number] Pt. Type: O Room/Bed: / Admit/Disch: 02/14/24 06:52:27 - Institution: Case Times Holding FT Pre-Care Text: Verifies consent for planned procedure, identifies individual values and wishes concerning care, includes family members in perioperative teaching Secures patient's records' belongings, and valuables, maintains patient's dignity and privacy, and maintains patient confidentiality Entry 1 In Holding 02/14/24 06:59:00 Outcomes Met? Yes Last Modified By: Javi HUSAIN, Danna Franco 02/14/24 07:08:14 Post-Care Text: The patient participates in decisions affecting his or her perioperative plan of care The patient's right to privacy is maintained Surgery Checklist FT Entry 1 Patient Birthday, ID Band Procedure History and Physical, Identification: Check, Patient Verification: Surgical Consent, With Participation Patient NPO after Midnight: Yes Date/Time: 02/14/24 03:30:00 Personal Items: Cataract Lens Implant Personal Items right eye cataract lens Comment: implant, clothes, shoes Limitations: n/a Complaints of Pain: No Pain Comment: denies Operative Site n/a Marking: Marked By: n/a Availability Equipment Verified: Does Patient Smoke No Patient states Yes Comment - Adult Mariangel- postop adult Supervision supervision available Case Cancelled in No Holding Area see comments below for reason Last Modified By: Danna Caldwell RN 02/14/24 07:09:06 General Comments: Pt finished colon prep at 0330, states stool is clear liquid yellow. /,RN Finalized By: Danna Caldwell RN Document Signatures Signed By: Danna Caldwell RN 02/14/24 07:09 [facility] Monitor Recordon 02-14-2024 Monitor Record [id number]# 1.00TIFF [facility] Monitor Record [id number]# 1.00TIFF Normal [facility] Outpatient Surgery Discharge Instructionon 02-14-2024 Outpatient Surgery Discharge Instruction [place] [id number] Patient Discharge Instructions PERSON INFORMATION Name: ALF GARIBAY Date of : 1950 Current Date: 02/14/2024 08:42:18 PHYSICIANS Admitting Physician: Nu Velez MD Discharge Diagnosis: [place] [facility] has been given the following list of follow-up instructions, prescriptions, and patient education materials: IF UNABLE TO CONTACT YOUR PHYSICIAN AND YOU FEEL IT IS AN EMERGENCY, GO TO THE NEAREST EMERGENCY ROOM OR CALL 911 I, ALF GARIBAY, have received the attached patient education materials/instruction s and have verbalized understanding: May we do a follow up call? Yes No I was present when discharge instructions were given Patient Signature Date Clinican/Nurse Signature Date Follow up: Pharmacy Information: [facility] You may receive a survey from [employer] asking you to rate your care experience. Your feedback is important and will help us understand what we do well and how we can improve the quality of care we provide to you, your loved ones and our community. It?s an honor to serve you. Thank you for choosing [facility] HERE ARE THE MEDICATION CHANGES THAT OCCURRED DURING YOUR HOSPITAL STAY Medications to Continue with No Changes Other Medications amitriptyline (amitriptyline 25 mg Tab) 1 Tablets By Mouth once a day (at bedtime). carvedilol (carvedilol 3.125 mg Tab) 1 Tablets By Mouth 2 times a day. cholecalciferol (Vitamin D3) By Mouth every day. diclofenac (diclofenac sodium 75 mg Oral EC Tab) 1 Tablets By Mouth 2 times a day. hydrochlorothiazide-l isinopril (hydrochlorothiazide- lisinopril 12.5 mg-20 mg Tab) 1 Tablets By Mouth every day. pyridoxine (Vitamin B6) By Mouth every day. rosuvastatin (Crestor 10 mg Tab) 1 Tablets By Mouth every day. PATIENT EDUCATION INFORMATION Instructions: Colonoscopy, Adult, Care After The following information offers guidance on how to care for yourself after your procedure. Your health care provider may also give you more specific instructions. If you have problems or questions, contact your health care provider. What can I expect after the procedure? After the procedure, it is common to have: ? A small amount of blood in your stool for 24 hours after the procedure. ? Some gas. ? Mild cramping or bloating of your abdomen. Follow these instructions at home: Eating and drinking ? Drink enough fluid to keep your urine pale yellow. ? Follow instructions from your health care provider about eating or drinking restrictions. ? Resume your normal diet as told by your health care provider. Avoid heavy or fried foods that are hard to digest. Activity ? Rest as told by your health care provider. ? Avoid sitting for a long time without moving. Get up to take short walks every 1?2 hours. This is important to improve blood flow and breathing. Ask for help if you feel weak or unsteady. ? Return to your normal activities as told by your health care provider. Ask your health care provider what activities are safe for you. Managing cramping and bloating ? Try walking around when you have cramps or feel bloated. ? If directed, apply heat to your abdomen as told by your health care provider. Use the heat source that your health care provider recommends, such as a moist heat pack or a heating pad. ? Place a towel between your skin and the heat source. ? Leave the heat on for 20?30 minutes. ? Remove the heat if your skin turns bright red. This is especially important if you are unable to feel pain, heat, or cold. You have a greater risk of getting burned. General instructions ? If you were given a sedative during the procedure, it can affect you for several hours. Do not drive or operate machinery until your health care provider says that it is safe. ? For the first 24 hours after the procedure: ? Do not sign important documents. ? Do not drink alcohol. ? Do your regular daily activities at a slower pace than normal. ? Eat soft foods that are easy to digest. ? Take iccy-ryj-aosqkyu and prescription medicines only as told by your health care provider. ? Keep all follow-up visits. This is important. Contact a health care provider if: ? You have blood in your stool 2?3 days after the procedure. Get help right away if: ? You have more than a small spotting of blood in your stool. ? You have large blood clots in your stool. ? You have swelling of your abdomen. ? You have nausea or vomiting. ? You (more content not included)... Normal [facility] Patient Education - Texton 0 02-14-2024 Patient Education - Text Oncology Colon Polyps Colon polyps are tissue growths inside the colon, which is part of the large intestine. They are one of the types of polyps that can grow in the body. A polyp may be a round bump or a mushroom-shaped growth. You could have one polyp or more than one. Most colon polyps are noncancerous (benign). However, some colon polyps can become cancerous over time. Finding and removing the polyps early can help prevent this. What are the causes? The exact cause of colon polyps is not known. What increases the risk? The following factors may make you more likely to develop this condition: ? Having a family history of colorectal cancer or colon polyps. ? Being older than 45 years of age. ? Being younger than 45 years of age and having a significant family history of colorectal cancer or colon polyps or a genetic condition that puts you at higher risk of getting colon polyps. ? Having inflammatory bowel disease, such as ulcerative colitis or Crohn's disease. ? Having certain conditions passed from parent to child (hereditary conditions), such as: ? Familial adenomatous polyposis (FAP). ? Mchugh syndrome. ? Turcot syndrome. ? Peutz?Jeghers syndrome. ? MUTYH-associated polyposis (MAP). ? Being overweight. ? Certain lifestyle factors. These include smoking cigarettes, drinking too much alcohol, not getting enough exercise, and eating a diet that is high in fat and red meat and low in fiber. ? Having had childhood cancer that was treated with radiation of the abdomen. What are the signs or symptoms? Many times, there are no symptoms. If you have symptoms, they may include: ? Blood coming from the rectum during a bowel movement. ? Blood in the stool (feces). The blood may be bright red or very dark in color. ? Pain in the abdomen. ? A change in bowel habits, such as constipation or diarrhea. How is this diagnosed? This condition is diagnosed with a colonoscopy. This is a procedure in which a lighted, flexible scope is inserted into the opening between the buttocks (anus) and then passed into the colon to examine the area. Polyps are sometimes found when a colonoscopy is done as part of routine cancer screening tests. How is this treated? This condition is treated by removing any polyps that are found. Most polyps can be removed during a colonoscopy. Those polyps will then be tested for cancer. Additional treatment may be needed depending on the results of testing. Follow these instructions at home: Eating and drinking ? Eat foods that are high in fiber, such as fruits, vegetables, and whole grains. ? Eat foods that are high in calcium and vitamin D, such as milk, cheese, yogurt, eggs, liver, fish, and broccoli. ? Limit foods that are high in fat, such as fried foods and desserts. ? Limit the amount of red meat, precooked or cured meat, or other processed meat that you eat, such as hot dogs, sausages, stoner, or meat loaves. ? Limit sugary drinks. Lifestyle ? Maintain a healthy weight, or lose weight if recommended by your health care provider. ? Exercise every day or as told by your health care provider. ? Do not use any products that contain nicotine or tobacco, such as cigarettes, e-cigarettes, and chewing tobacco. If you need help quitting, ask your health care provider. ? Do not drink alcohol if: ? Your health care provider tells you not to drink. ? You are , may be , or are planning to become . ? If you drink alcohol: ? Limit how much you use to: ? 0?1 drink a day for women. ? 0?2 drinks a day for men. ? Know how much alcohol is in your drink. In the [place] one drink equals one 12 oz bottle of beer (355 mL), one 5 oz glass of wine (148 mL), or one 1? oz glass of hard liquor (44 mL). General instructions ? Take ljgc-nkg-zewhuau and prescription medicines only as told by your health care provider. ? Keep all follow-up visits. This is important. This includes having regularly scheduled colonoscopies. Talk to your health care provider about when you need a colonoscopy. Contact a health care provider if: ? You have new or worsening bleeding during a bowel movement. ? You have new or increased blood in your stool. ? You have a change in bowel habits. ? You lose weight for no known reason. Summary ? Colon polyps are tissue growths inside the colon, which is part of the large intestine. They are one type of polyp that can grow in the body. ? Most colon polyps are noncancerous (benign), but some can become cancerous over time. ? This condition is diagnosed with a colonoscopy. ? This condition is treated by removing any polyps that are found. Most polyps can be removed during a colonoscopy. This information is not intended to replace advice given to you by your health care provider. Make sure you discuss any questions you have with your health care provider. Document Revised: 02/26/2021 D (more content not included)... Normal [facility] Insurance Correspondenceon 0 01-25-2024 Insurance Correspondence [id number]#1. 00TIFF [facility] Consent for Procedure/Surger yon 01-05-2024 Consent for Procedure/Surgery [id number]# 1.00TIFF [facility] Ambulatory Visit Summaryon 0 01-03-2024 Ambulatory Visit Summary ALF GARIBAY :1950 Visit Date:01/03/2024 Ambulatory Visit Instructions Your Diagnosis History of colon polyps BMI 26.0-26.9,adult Overweight Family history of colon cancer Your Care Team Attending Physician - Nu Velez MD Primary Care Physician - AURORA VITAL Referring Physician - AURORA VITAL This Is Your Medications List amitriptyline (amitriptyline 25 mg Tab) carvedilol (carvedilol 3.125 mg Tab) cholecalciferol (Vitamin D3) diclofenac (diclofenac sodium 75 mg Oral EC Tab) hydrochlorothiazide-l isinopril (hydrochlorothiazide- lisinopril 12.5 mg-20 mg Tab) pyridoxine (Vitamin B6) rosuvastatin (Crestor 10 mg Tab) Procedures Performed TURP - Transurethral resection of prostate (09/03/2022), TURP - Transurethral resection of prostate (2008), Appendectomy, Bilateral after-cataract, Colonoscopy, Hernia, Tonsillectomy. Discharge Vitals Heart Rate (Peripheral) 80 Blood Pressure 183/105 Height 190 cm Height 75 in Weight 101 kg Weight 222.2 lb BMI 27.98 Medications What How Much When Instructions Unchanged amitriptyline (amitriptyline 25 mg Tab) Unchanged carvedilol (carvedilol 3.125 mg Tab) 1 Tablets Unchanged cholecalciferol (Vitamin D3) Unchanged diclofenac (diclofenac sodium 75 mg Oral EC Tab) Unchanged hydrochlorothiazide-l isinopril (hydrochlorothiazide- lisinopril 12.5 mg-20 mg Tab) 1 Tablets By Mouth Every day Unchanged pyridoxine (Vitamin B6) Every day Unchanged rosuvastatin (Crestor 10 mg Tab) 1 Tablets By Mouth Every day Allergies No Known Allergies Problems Ongoing - Any problem that you are currently receiving treatment for. BMI 26.0-26.9,adult BPH with urinary obstruction Family history of colon cancer History of colon polyps Hyperlipidemia Hypertension Overweight Urinary hesitancy Patient Survey You may receive a survey via text or e-mail asking about your office visit. Please share your experience with us by completing your survey. We appreciate your feedback and thank you for choosing us for your care. 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 male here for surveillance colonoscopy Last colonoscopy- 05/2015- previous hx of polyps Family history of colon cancer- Father between 60 y.o. and 70 y.o. Denies rectal pain/abdominal pain/rectal bleeding/black stools/constipation History of Present Illness Alf Garibay is a 73-year-old male with a history of colon polyps. His last scope by Dr. Gonzalez in 2014. At that time, he was found to have diverticulosis, but no polyps. However, given his history of colon polyps, he was referred back for a surveillance scope in 5 years and this was 9 years ago. The patient does have a family history of colon cancer through his father who required colectomy when he was in his 60's. He denies melena, hematochezia, rapid onset weight loss, or change in bowel habits. Review of Systems PHQ Score Initial Depression Screen Score: 0 SCORE Constitutional: No fever, no sweats, no weight loss. Eyes: No glasses, no blurred vision, no visual loss. ENMT: No dentures, no hoarseness, no swallowing difficulties, no hearing loss, no ear infection(s), no nose bleeds. Cardiovascular: Normal blood pressure, no chest pain, regular heartbeat, no heart murmur. Respiratory: No shortness of breath, no cough, no asthma, no wheezing. Gastrointestinal: No nausea, no vomiting, no diarrhea, no constipation, no blood in stool, no change in bowel habits, no abdominal pain, no hepatitis. Genitourinary: No kidney stones, no urine infection, no dysuria. Musculoskeletal: No pain, no weakness. Skin: No changing moles, no rash, no skin lumps. Neurologic: No seizures, no epilepsy, no headache. Psychiatric: No emotional or psychiatric problem. Heme/Lymph: No bleeding problems, no anemia, no blood clots, no transfusions. Allergy/Immunologic: No swollen lymph nodes/glands, no IV drug abuse. Other: Additional ROS info: Except as noted in the above Review of Systems and in the History of Present Illness, all other systems have been reviewed and are negative or noncontributory. Physical Exam Vitals & Measurements HR: 80(Peripheral) BP: 154/86 HT: 75 in HT: 190 cm WT: 101 kg WT: 222.2 lb BMI: 27.98 General: No acute distress Respiratory: Unlabored breathing on room air Cardiac: Regular rate and rhythm Abdomen: Soft nontender nondistended Assessment/Plan We will proceed with a surveillance colonoscopy. 1. History of colon polyps (Z86.010: Personal history of colonic polyps) 2. BMI 26.0-26.9,adult (Z68.26: Body mass index [BMI] 26.0-26.9, adult) 3. Overweight (E66.3: Overweight) 4. Family history of colon cancer (Z80.0: Family history of malignant neoplasm of digestive organs) ATTESTATION: Portions of this record may have been created with voice recognition artificial intelligence software, specifically [employer], [employer] and or [employer]. Substitutions may have occurred due to the inherent limitations of voice recognition and artificial intelligence software. Documentation services were performed after patient or guardian consented to allow [employer] to record this visit. MARQUIS immigration specialist and provider reviewed before signing. MARQUIS: Yaima Johnson Follow-up No qualifying data available Problem List/Past Medical History Ongoing BMI 26.0-26.9,adult BPH with urinary obstruction Family history of colon cancer History of colon polyps Hyperlipidemia Hypertension Overweight Urinary hesitancy Historical No qualifying data Procedure/Surgical History TURP - Transurethral resection of prostate (09/03/2022), TURP - Transurethral resection of prostate (2008), Appendectomy, Bilateral after-cataract, Colonoscopy, Hernia, Tonsillectomy. Medications amitriptyline 25 mg Tab carvedilol 3.125 mg Tab, 3.125 mg= 1 tab(s) Crestor 10 mg Tab, 10 mg= 1 tab(s), Oral, Daily diclofenac sodium 75 mg Oral EC Tab hydrochlorothiazide-l isinopril 12.5 mg-20 mg Tab, 1 tab(s), Oral, Daily Vitamin B6, Daily Vitamin D3 Allergies No Known Allergies Social History Tobacco Never (less than 100 in lifetime) Tobacco Use:. Never Smokeless Tobacco Use:., 01/03/2024 Family History Colon cancer stage 1: Father. Immunizations Vaccine Date Status Comments influenza virus vaccine, inactivated 09/16/2023 Recorded influenza virus vaccine, inactivated 10/13/2022 Recorded SARS-CoV-2 mRNA (tokristynameran 5y-11y) vac - Not Given Postpone due to refusal pneumococcal 23-valent vaccine 05/12/2022 Recorded pneumococcal 13-valent vaccine 05/04/2022 Recorded influenza virus vaccine, inactivated 08/11/2021 Recorded SARS-CoV-2 (COVID-19) mRNA BNT-162b2 vax 02/11/2021 Recorded SARS-CoV-2 (COVID-19) mRNA BNT-162b2 vax 01/20/2021 Recorded influenza virus vaccine, inactivated 09/17/2020 Recorded influenza virus vaccine, inactivated 09/07/2017 Recorded pneumococcal 23-valent vaccine 12/29/2016 Recorded influenza virus vacci (more content not included)... Normal [facility] Comment on above: Result Comment: Elec tronically Signed By: Rosie MEJIA, Nu Johnson\.br\Date and Time Signed: 01/03/24 14:31 EST\.br\Electronically Co-Signed By: Yaima Johnson\.br\Date and Time Co-Signed: 01/03/24 10:44 EST Physician Referralon 024 Physician Referral [id number] .00TIFF Normal [facility] CREATININEon 04-01-2023 Creatinine [Mass/Vol] 1.04 mg/dL Normal 0.70-1.30 [facility] Comment on above: Performed By: #### C MAX #### Laboratory [address] [place] [address] Dr. Salvador Belcher EGFR-AF INDIAN >60 Normal >=60 [facility] Comment on above: Performed By: #### C MAX #### Laboratory [address] [place] [address] Dr. Salvador Belcher EGFR-NON AF INDIAN >60 Normal >=60 [facility] Comment on above: Performed By: #### C MAX #### Laboratory [address] [place] [address] Dr. 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 Multi-planar/3-D imaging to optimize visualization of vascular anatomy. Dose reduction techniques were achieved by using automated exposure control and/or adjustment of mA and/or kV according to patient size and/or use of iterative reconstruction technique. FINDINGS: AORTA/VASCULAR: Small saccular aneurysm along left lateral margin of the aorta, just above its bifurcation; maximum diameter 2.9 cm. CELIAC ARTERY: 1.4 cm diameter fusiform dilation of the celiac axis. SMA: Normal mesenteric vessels. RENAL ARTERIES: Normal renal vessels. LUNG BASES: No visible pulmonary or pleural disease. LIVER: Fatty infiltration. BILIARY: 1 cm stone within noninflamed gallbladder. PANCREAS: No lesion, fluid collection, ductal dilatation, or atrophy. SPLEEN: No enlargement or focal lesion. ADRENALS: No mass or enlargement. KIDNEYS: Right kidney contains a nonobstructing 7 mm stone, and a benign-appearing 3.0 cm cyst. Unremarkable left kidney and bilateral ureters. BOWEL/MESENTERY: Numerous prominent diverticula involving descending and sigmoid colon without acute inflammatory changes. No visible mass, obstruction, or bowel wall thickening. RETROPERITONEUM: No mass or adenopathy. LYMPH NODES: No adenopathy. URINARY BLADDER: No visible focal wall thickening, lesion, or calculus. PELVIC ORGANS: Slightly prominent prostate. ABDOMINAL WALL: Small fat filled umbilical hernia without strangulation. BONES: Marked degenerative disc disease L1-2 through L4-5. Grade 1 anterolisthesis of L2 on 3. OTHER: Negative. IMPRESSION: 1. 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 2. 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 3. Cholelithiasis. 4. Nonobstructing right nephrolithiasis. 5. Colonic diverticulosis. 6. 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 Electronically authenticated by: KENNY MANN Date: 2023-04-01 08:56 Normal [facility] CTA CHEST WO W CONon 023 CTA CHEST WO W CON EXAMINATION: CTA CHEST WO W CON HISTORY: Dilatation of aorta COMPARISON: No relevant comparison available. TECHNIQUE: Multi-planar CT images were created with IV contrast. Axial, Coronal, and Sagittal images. Dose reduction techniques were achieved by using automated exposure control and/or adjustment of mA and/or kV according to patient size and/or use of iterative reconstruction technique. 3-D reconstruction was performed on a separate workstation. FINDINGS: VASCULATURE: No pulmonary embolism or abnormal opacity. LUNGS: No visible pulmonary disease. PLEURA: No mass, effusion, or pneumothorax. JENNIFER: No mass or adenopathy. MEDIASTINUM: No mass or adenopathy. CARDIAC: No enlargement, pericardial effusion, or pericardial thickening. AORTA: No aneurysm or dissection; ascending aorta is 3.6 cm in maximum diameter. CHEST WALL: No mass or axillary adenopathy. BONES: No bone lesion or fracture. LIMITED ABDOMEN: No suspicious findings. Limited images of the upper abdomen. 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 IMPRESSION: 1. No aneurysmal dilation of the thoracic aorta. 2. 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 CT angiography of the abdomen and pelvis is recommended for further evaluation. Electronically authenticated by: KENNY MANN Date: 2023-03-01 06:25 Normal [facility] CREATININEon 02-27-2023 Creatinine [Mass/Vol] 1.00 mg/dL Normal 0.70-1.30 [facility] Comment on above: Performed By: #### C MAX #### Laboratory [address] [place] [address] Dr. Salvador Belcher EGFR-AF INDIAN >60 Normal >=60 [facility] Comment on above: Performed By: #### C MAX #### Laboratory [address] [address] [address] Salvador Belcher EGFR-NON AF INDIAN >60 Normal >=60 [facility] Comment on above: Performed By: #### C MAX #### Laboratory [address] [place] [address] Dr. Salvador Belcher ECHOCARDIO M/2D COMPLETEon 0 01-26-2023 ECHOCARDIO M/2D COMPLETE Patient: ALF GARIBAY Exam Date: 01/26/2023 : 1950 Gender:M Ordering : RHONDA DOTSON [facility] Admission #: [id number] Family : Order #: [id number] CLICK HERE TO VIEW EXAM ECHOCARDIOGRAM REPORT PROCEDURE: CARDIO PULMONARY ECHOCARDIO M/2D COMP INDICATIONS: Primary HTN. LVH COMPARISON: None. DESCRIPTION: COMPLETE ECHOCARDIOGRAM Real-time transthoracic echocardiography with 2D, M-mode, spectral and color flow Doppler performed. QUALITY: Technical quality was good. LEFT VENTRICLE: Normal chamber size. Mild concentric left ventricular hypertrophy. Global left ventricular systolic function is normal. LV EF: Calculated left ventricular ejection fraction is 59%. DIASTOLIC: Diastolic function is indeterminate. ATRIAL SEPTUM: LEFT ATRIUM: Moderate dilatation. RIGHT ATRIUM: Mild dilatation. RIGHT VENTRICLE: Mild dilatation. Normal right ventricular systolic function. TRICUSPID VALVE: Normal mobility and thickness. No stenosis with trivial regurgitation. No evidence of pulmonary hypertension. RVSP 28 mmHg MITRAL VALVE: Normal mobility and thickness. No mitral valve prolapse. No evidence of mitral valve stenosis. There is no mitral annular calcification. Mild mitral regurgitation. AORTIC VALVE: Normal trileaflet appearance. Mildly calcified noncoronary cusp of the aortic valve. Normal leaflet mobility. No evidence of aortic valve stenosis. No aortic regurgitation. AORTIC ROOT: Moderately dilated. The aorta measures 4.4 cm at the sinus level. The ascending aorta is normal in size and measures 3.1 cm. PULMONIC VALVE: Normal thickness and mobility. No stenosis. No regurgitation. PERICARDIUM: No evidence of pericardial effusion. IVC: Collapses with inspirations. Normal size. PLEURA: CONCLUSION: 1. Mild concentric left ventricular hypertrophy. Normal left ventricular systolic function. LVEF is 60%. 2. Mildly dilated right ventricle with normal systolic function. 3. Mild to moderate biatrial dilatation. 4. Mild mitral regurgitation. 5. Moderately dilated aortic root measuring 4.4 cm. 6. Normal right-sided pressures. Adult Echocardiography Procedure Report Left Ventricle LVEDD (3.7 - 5.6 cm): 4.64 cm LVESD (2.2 - 4.0 cm): 3.14 cm LVIVS thickness (0.6 - 1.2 cm): 1.20 cm LVPW thickness (0.5 - 1.0 cm): 1.07 cm e': 0.07 m/s E - e': 8.59 LVOT Max Gradient: 2.38 mm[Hg] Peak Velocity (LVOT): 0.77 m/s Mean Velocity (LVOT): 0.49 m/s LVOT Diameter 2.50 cm Left Ventricular Ejection Fraction: 60% Left Atrium LA Volume Index (2D A2C): 114.83 ml, 114.83 ml Left Atrium Systolic Dimension: 3.72 cm Mitral Valve MV E to A Ratio: 0.80 Mitral Valve A-Wave Peak Velocity: 0.75 m/s Mitral Valve E-Wave Peak Velocity: 0.60 m/s Right Ventricle RV Internal Diastolic Dimension: 4.22 cm Aorta AO Root Diam: 3.85 cm, 4.40 cm Ascending Ao Diam: 3.10 cm, 3.11 cm Aortic Valve AoV Area (Peak Angel): 3.63 cm2, 3.68 cm2 AoV Area (VTI): 3.91 cm2, 3.90 cm2 Peak Velocity(Antegrade Flow): 1.03 m/s, 1.06 m/s Peak Gradient(Antegrade Flow): 4.23 mm[Hg], 4.46 mm[Hg] Mean Velocity(Antegrade Flow): 0.69 m/s, 0.72 m/s Mean Gradient(Antegrade Flow): 2.16 mm[Hg], 2.34 mm[Hg] Velocity Time Integral: 19.42 cm, 19.32 cm Tricuspid Valve Peak Velocity (Regurgitant Flow): 2.28 m/s, 2.50 m/s, 2.38 m/s Peak Velocity: 0.60 m/s, 0.60 m/s Pulmonic Valve Mean Gradient: 2.14 mm[Hg] Mean Velocity: 0.67 m/s Peak Velocity: 1.09 m/s, 0.81 m/s Peak Gradient: 4.78 mm[Hg], 2.60 mm[Hg] Right Atrium Right Atrium Systolic Pressure: 58.15 ml, 58.15 ml Dictated by: Juan M Goldberg M.D. on 01/28/2023 at 09:47 Approved by: Juan M Goldberg M.D. on 01/28/2023 at 09:56 Normal [facility] Visiton 01-12-2023 Follow-up visit [id number] [facility] 1950 M Date Provider Department Center 01/12/2023 RHONDA DYER [facility] Family History Problem Relation Age of Onset Coronary artery disease Father Stroke Father Hyperlipidemia Father Family Status - Relation Status Age at Father Level of Service:71158 MD OFFICE/OUTPATIENT ESTABLISHED LOW MDM 20-29 MIN Reason for Visit and Comments: Hypertension [324995] Hyperlipidemia [182] Normal [facility] Covid-19 PCR (CVDTB)on 08-22 SARS-CoV-2 (COVID-19) RNA CRYS+probe Ql (Unsp spec) Not detected Normal NOT DETECTED The Comment on above: Result Comment: This test is not yet approved or cleared by the [place] FDA. When there are no FDA-approved or cleared tests available, and other criteria are met, FDA can make tests available under an emergency access mechanism called an Emergency Use Authorization (EUA). The EUA for this test is supported by the Registered Nurse Ambulatory of Health and Human Service's (HHS's) declaration that circumstances exist to justify the emergency use of in vitro diagnostics for the detection and/or diagnosis of the virus that causes COVID-19. This EUA will remain in effect (meaning this test can be used) for the duration of the COVID-19 declaration justifying emergency of IVDs, unless it is terminated or revoked by FDA (after which the test may no longer be used). When diagnostic testing is negative, the possibility of a false negative should be considered in the context of a patient's recent exposures and the presence of clinical signs and symptoms consistent with SARS-CoV-2. Performed By: #### [facility] #### [id number] [id number]. Salvador Belcher CBC AUTO DIFFon 07-31-2022 BASO # 0.0 103/ul Normal 0.0-0.1 [facility] Comment on above: Performed By: #### C BC #### Laboratory [address] [address] [address] Salvador Belcher Basophils/100 WBC (Bld) 0.3 % Normal 0.2-2.0 [facility] Comment on above: Performed By: #### C BC #### Laboratory [address] [address] [address] Salvador Belcher EO # 0.0 103/ul Normal 0.0-0.7 The Comment on above: Performed By: #### C BC #### Laboratory [address] [address] [address] Salvador Belcher Eosinophils/100 WBC (Bld) 0.5 % Critically low 0.9-7.0 The Comment on above: Performed By: #### C BC #### Laboratory [address] [place] [address] Dr. Salvador Belcher Erythrocyte distribution width (RBC) [Ratio] 13.1 % Normal 11.0-15.0 The Comment on above: Performed By: #### C BC #### Laboratory [address] [place] [address] Dr. Salvador Belcher Hematocrit (Bld) [Volume fraction] 48.5 % Normal 42.0-54.0 [facility] Comment on above: Performed By: #### C BC #### Laboratory [address] [place] [address] Dr. Salvador Belcher Hemoglobin (Bld) [Mass/Vol] 16.3 g/dL Normal 14.0-18.0 [facility] Comment on above: Performed By: #### C BC #### Laboratory [address] [place] [address] Dr. Salvador Belcher IG # 0.03 10e3/ul Normal 0.00-0.03 [facility] Comment on above: Performed By: #### C BC #### Laboratory [address] [place] [address] Dr. Salvador Belcher IG % 0.4 % Normal 0.0-0.5 [facility] Comment on above: Performed By: #### C BC #### Laboratory [address] [place] [address] Dr. Salvador Belcher LYMPH # 2.2 103/ul Normal 1.2-3.8 [facility] Comment on above: Performed By: #### C BC #### Laboratory [address] [place] [address] Dr. Salvador Belcher Lymphocytes/100 WBC (Bld) 28.2 % Normal 20.5-60.0 [facility] Comment on above: Performed By: #### C BC #### Laboratory [address] [place] [address] Dr. Salvador Belcher MANUAL DIFF REQ NO Normal [facility] Comment on above: Performed By: #### C BC #### Laboratory [address] [place] [address] Dr. Salvador Belcher MCH (RBC) [Entitic mass] 32.0 pg Normal 25.9-34.0 [facility] Comment on above: Performed By: #### C BC #### Laboratory [address] [place] [address] Dr. Salvador Belcher MCHC (RBC) [Mass/Vol] 33.6 g/dL Normal 29.9-35.2 The Comment on above: Performed By: #### C BC #### Laboratory [address] [address] [address] Salvador Belcher MCV (RBC) [Entitic vol] 95.3 fL Critically high 80.0-94.0 The Comment on above: Performed By: #### C BC #### Laboratory [address] [place] [address] Dr. Salvador Belcher MONO # 0.5 103/ul Normal 0.3-0.8 The Comment on above: Performed By: #### C BC #### Laboratory [address] [place] [address] Dr. Salvador Belcher Monocytes/100 WBC (Bld) 6.8 % Normal 1.7-12.0 The Comment on above: Performed By: #### C BC #### Laboratory [address] [place] [address] Dr. Salvador Belcher NEUT # 5.1 103/ul Normal 1.4-6.5 [facility] Comment on above: Performed By: #### C BC #### Laboratory [address] [place] [address] Dr. Salvador Belcher Neutrophils/100 WBC (Bld) 63.8 % Normal 43.0-75.0 The Comment on above: Performed By: #### C BC #### Laboratory [address] [place] [address] Dr. Salvador Belcher Platelet mean volume (Bld) [Entitic vol] 9.4 fL Critically low 9.5-13.5 The Comment on above: Performed By: #### C BC #### Laboratory [address] [place] [address] Dr. Salvador Belcher PLT 177 103/ul Normal 150-450 The Comment on above: Performed By: #### C BC #### Laboratory [address] [place] [address] Dr. Salvador Belcher RBC 5.09 106/ul Normal 4.70-6.10 [facility] Comment on above: Performed By: #### C BC #### Laboratory [address] [place], [place] [address] Dr. Salvador Belcher WBC 7.9 103/ul Normal 4.0-11.0 [facility] Comment on above: Performed By: #### C BC #### Laboratory [address] [place], [place] [address] Dr. Salvador Belcher Covid-19 PCR ([facility])on SARS-CoV-2 (COVID-19) RNA CRYS+probe Ql (Unsp spec) Not detected Normal NOT DETECTED The Comment on above: Result Comment: This test is not yet approved or cleared by the [place] FDA. When there are no FDA-approved or cleared tests available, and other criteria are met, FDA can make tests available under an emergency access mechanism called an Emergency Use Authorization (EUA). The EUA for this test is supported by the [place] of Health and Human Service's (HHS's) declaration that circumstances exist to justify the emergency use of in vitro diagnostics for the detection and/or diagnosis of the virus that causes COVID-19. This EUA will remain in effect (meaning this test can be used) for the duration of the COVID-19 declaration justifying emergency of IVDs, unless it is terminated or revoked by FDA (after which the test may no longer be used). When diagnostic testing is negative, the possibility of a false negative should be considered in the context of a patient's recent exposures and the presence of clinical signs and symptoms consistent with SARS-CoV-2. Performed By: #### C VDTBH #### Laboratory [address] [place], [place] [address] Dr. Salvador Belcher PROF CHEM 8 (BAS METB)on Anion gap [Moles/Vol] 12.2 mmol/L Normal Th e Comment on above: Performed By: #### B MP #### [id number] [place], [place] [address]OmDr. Salvador Belcher Calcium [Mass/Vol] 9.5 mg/dL Normal 8.5-10.1 [facility] Comment on above: Performed By: #### B MP #### [id number] [address]Dr. Salvador Belcher Chloride [Moles/Vol] 103 mmol/L Normal 98-107 The Comment on above: Performed By: #### B MP #### [id number] [address]Dr. Salvador Belcher CO2 [Moles/Vol] 30.2 mmol/L Normal 21.0-32.0 [facility] Comment on above: Performed By: #### B MP #### [id number] [address]Dr. Salvador Belcher Creatinine [Mass/Vol] 0.92 mg/dL Normal 0.70-1.30 The Comment on above: Performed By: #### B MP #### [id number] [place], [place] [address]Dr. Salvador Belcher EGFR-AF INDIAN >60 Normal >=60 [facility] Comment on above: Performed By: #### B MP #### [id number] [place], [place] [address]Dr. Salvador Belcher EGFR-NON AF INDIAN >60 Normal >=60 The Comment on above: Performed By: #### B MP #### [id number] [place], [place] [address]Dr. Salvador Belcher Glucose [Mass/Vol] 99 mg/dL Normal 74-106 [facility] Comment on above: Performed By: #### B MP #### [id number] [place], [place] [address]Dr. Salvador Belcher Potassium [Moles/Vol] 4.4 mmol/L Normal 3.5-5.1 The Comment on above: Performed By: #### B MP #### [id number] [address]Dr. Ivorycindy Belcher Sodium [Moles/Vol] 141 mmol/L Normal 136-145 [facility] Comment on above: Performed By: #### B MP #### [id number] [id number]. Salvador Belcher Urea nitrogen [Mass/Vol] 22.0 mg/dL Critically high 7.0-18.0 [facility] Comment on above: Performed By: #### B MP #### [id number] [address]DrColby Belcher Urea nitrogen/Creatinine [Mass ratio] 23.9 mg/mg Normal The Comment on above: Performed By: #### B MP #### [id number] [address]DrColby Belcher PROTIMEon 07-31-2022 INR Coag (PPP) [Relative time] 0.96 {INR} Normal The Comment on above: Performed By: #### P T, PTT #### Laboratory [address] [address] [address] Salvador Belcher INR GUIDELINES SEE BELOW Normal [facility] Comment on above: Result Comment: ISADORA RED INR: 2.0 - 3.0 CONDITIONS NOT LISTED BELOW 2.5 - 3.5 FOR PROSTHETIC HEART VALVE REPLACEMENT 2.5 - 3.5 RECURRENT THROMBOSIS Performed By: #### P T, PTT #### Laboratory [address] [address] [address] Salvador Belcher PT Coag (PPP) [Time] 10.4 s Normal 9.0-11.6 The Comment on above: Performed By: #### P T, PTT #### Laboratory [address] [address] [address] Salvador Belcher PTTon 07-31-2022 aPTT Coag (Bld) [Time] 29.6 s Normal 22.3-36.2 The Comment on above: Performed By: #### P T, PTT #### [id number] [address]Dr. Salvador Belcher ER URINE PROFILEon 2 Bilirubin Ql (U) Negative Normal NEGATIVE [facility] Comment on above: Performed By: #### E BRET LUO #### Laboratory [address] [place] [address] Dr. Salvador Belcher Clarity (U) CLEAR Normal CLEAR [facility] Comment on above: Performed By: #### FIDENCIO SARKARRO #### Laboratory [address] [place] [address] Dr. Salvador Belcher Color (U) LT. YELLOW Normal YELLOW [facility] Comment on above: Performed By: #### FIDENCIO SARKARRO #### Laboratory [address] [place] [address] Dr. Salvador SANDHU A micrscopic examination will be performed if indicated. Normal [facility] Comment on above: Performed By: #### FIDENCIO SARKARRO #### Laboratory [address] [place] [address] Dr. Salvador Belcher Glucose Ql (U) Negative Normal NEGATIVE [facility] Comment on above: Performed By: #### FIDENCIO SARKARRO #### Laboratory [address] [place] [address] Dr. Salvador Belcher Hemoglobin Ql (U) TRACE-INTACT Abnormal NEGATIVE [facility] Comment on above: Performed By: #### FIDENCIO SARKARRO #### Laboratory [address] [place] [address] Dr. Salvador Belcher Ketones Ql (U) Negative Normal NEGATIVE [facility] Comment on above: Performed By: #### FIDENCIO SARKARRO #### Laboratory [address] [place] [address] Dr. Salvador Belcher LEUKOCYTES Negative Normal NEGATIVE [facility] Comment on above: Performed By: #### FIDENCIO SARKARRO #### Laboratory [address] [place] [address] Dr. Salvador Belcher Nitrite Ql (U) Negative Normal NEGATIVE [facility] Comment on above: Performed By: #### FIDENCIO SARKARRO #### Laboratory [address] [place] [address] Dr. Salvador Belcher pH (U) 6.0 [pH] Normal 5-9 [facility] Comment on above: Performed By: #### E RUR, UMICRO #### Laboratory [address] [place] [address] Dr. Salvador Belcher SPEC GRAVITY 1.015 Normal 1.005-<=1.025 [facility] Comment on above: Performed By: #### E RUR, UMICRO #### Laboratory [address] [place] [address] Dr. Salvador Belcher UA PROTEIN Negative Normal NEGATIVE/ TRACE The Comment on above: Performed By: #### E RUR, UMICRO #### Laboratory [address] [place] [address] Dr. Salvador Belcher UR MICRO IND INDICATED Normal [facility] Comment on above: Performed By: #### E RUR, UMICRO #### Laboratory [address] [place] [address] Dr. Salvador Belcher Urobilinogen Qn (U) 0.2 {Tigist'U}/dL Normal 0.2 - 1. 0 [facility] Comment on above: Performed By: #### E RUR, UMICRO #### Laboratory [address] [place] [address] Dr. Salvador Belcher URINE MICROSCOPIC ONLYon BACTERIA NONE SEEN Normal NONE SEEN [facility] Comment on above: Performed By: #### E RUSally, UMICRO #### Laboratory [address] [place] [address] Dr. Salvador Belcher Bacteria identified Cx Nom (U) NOT INDICATED Normal The Comment on above: Performed By: #### E RUR, UMICRO #### Laboratory [address] [place] [address] Dr. Salvador Belcher CAST NONE SEEN Normal NONE SEEN The Comment on above: Performed By: #### E RUR, UMICRO #### Laboratory [address] [place] [address] Dr. Salvador Belcher Crystals LM Nom (Urine sed) NONE SEEN Normal NONE SEEN [facility] Comment on above: Performed By: #### E RUR, UMICRO #### Laboratory [address] [address] [address] Salvador Belcher Epithelial cells LM Ql (Urine sed) NONE SEEN Normal NONE SEEN /RARE The Comment on above: Performed By: #### Carlos LUO, UMICRO #### Laboratory [address] [address] [address] Salvador Belcher MUCOUS NONE SEEN Normal NONE SEEN The Comment on above: Performed By: #### Carlos LUO UMICRO #### Laboratory [address] [address] [address] Salvador Belcher RBC 0-2 Normal 0-2 [facility] Comment on above: Performed By: #### FIDENCIO SARKARRO #### Laboratory [address] [address] [address] Salvador Belcher WBC NONE SEEN Normal NONE SEEN The Comment on above: Performed By: #### Carlos LUO UMSTEFANIARO #### Laboratory [address] [address] [address] Salvador Belcher Anion Gap Bld-sCncon 020 Anion gap (Bld) [Moles/Vol] 12 mmol/L 6-18 [facility] Work Phone: BUN SerPl-mCncon 02-02-2020 Urea nitrogen [Mass/Vol] 15 mg/dL -18 [facility] Work Phone: Basophils # Bld Autoon 02-01 Basophils (Bld) [#/Vol] 0.0 10*3/uL 0.0-0.2 [facility] Work Phone: Basophils/leuk NFr Bld Autoo n 02-02-2020 Basophils/100 WBC (Bld) 0.1 % [facility] Work Phone: CO2 SerPl-sCncon 02-02-2020 CO2 [Moles/Vol] 24 mmol/L 21-32 [facility] Work Phone: Calcium SerPl-mCncon 02-01- 020 Calcium [Mass/Vol] 8.7 mg/dL 8.5-10.1 [facility] Work Phone: Eosinophil # Bld Autoon 01-20 Eosinophils (Bld) [#/Vol] 0.0 10*3/uL 0.0-0.5 [facility] Work Phone: Eosinophil/leuk NFr Bld Auto on 02-02-2020 Eosinophils/100 WBC (Bld) 0.0 % [facility] Work Phone: GFR/BSA.pred SerPl-ArVRaton 02-02-2020 GFR/1.73 sq M.predicted (S/P/Bld) [Vol rate/Area] mL/min > 60 [facility] Work Phone: Comment on above: eGFR (Estimated GFR) Units of measure:mL/min/1.73 meters sq. *CALCULATION REVISED 09/10/2015;IDMS-traceable MDRD equationeGFR is derived from the reexpressed MDRD Study equationusing the following parameters: serum creatinine, age,gender and race. An eGFR<60 mL/min/1.73m2 for >3 monthsis consistent with chronic kidney disease. Refer to KDOQIguidelines for clinical interpretation. Hct VFr Bld Autoon 0 Hematocrit (Bld) [Volume fraction] 42.3 % 39.0-55.0 [facility] Work Phone: Hgb Bld-mCncon 02-02-2020 Hemoglobin (Bld) [Mass/Vol] 14.2 g/dL 14.0-16.5 [facility] Work Phone: Imm Granulocytes # Bld Autoo n 02-02-2020 Immature granulocytes (Bld) [#/Vol] 0.08 10*3/uL 0-0.05 [facility] Work Phone: Imm Granulocytes/leuk NFr Bl d Autoon 02-02-2020 Immature granulocytes/100 WBC (Bld) 0.7 % [facility] Work Phone: Lymphocytes # Bld Autoon Lymphocytes (Bld) [#/Vol] 0.4 10*3/uL 1.2-3.5 [facility] Work Phone: Lymphocytes/leuk NFr Bld Aut oon 02-02-2020 Lymphocytes/100 WBC (Bld) 3.6 % [facility] Work Phone: MCH RBC Qn Autoon 02-02-2020 MCH (RBC) [Entitic mass] 31.0 pg 25.4-34.6 [facility] Work Phone: MCHC RBC Auto-mCncon 02-01- 020 MCHC (RBC) [Mass/Vol] 33.6 g/dL 31.5-36.5 [facility] Work Phone: MCV RBC Autoon 02-02-2020 MCV (RBC) [Entitic vol] 92.4 fL 80.0-100.0 [facility] Work Phone: Metabolic Panelon 02-02-2020 Chloride [Moles/Vol] 105 mmol/L 98-107 [facility] Work Phone: Creatinine [Mass/Vol] 1.010 mg/dL 0.700-1.[address] [facility] Work Phone: Glucose [Mass/Vol] 159 mg/dL 70-99 [facility] Work Phone: Comment on above: Fasting GLUCOSE refe rence range has been updated per (ADA)[place] Diabetes [employer]'s recommendation. 02/14/2019 Potassium [Moles/Vol] 4.0 mmol/L 3.5-5.1 [facility] Work Phone: Sodium [Moles/Vol] 137 mmol/L 136-145 [facility] Work Phone: Monocytes # Bld Autoon 02-01 Monocytes (Bld) [#/Vol] 0.1 10*3/uL 0.0-1.0 [facility] Work Phone: Monocytes/leuk NFr Bld Autoo n 02-02-2020 Monocytes/100 WBC (Bld) 1.2 % [facility] Work Phone: Neutrophils # Bld Autoon Neutrophils (Bld) [#/Vol] 10.1 10*3/uL 1.4-6.6 [facility] Work Phone: Neutrophils/leuk NFr Bld Aut oon 02-02-2020 Neutrophils/100 WBC (Bld) 94.4 % [facility] Work Phone: Osmolality SerPl Calcon 01-20 Osmolality Calc [Osmolality] 288 270-300 [facility] Work Phone: Otheron 02-02-2020 Differential Slide Review YES [facility] Work Phone: Comment on above: Peripheral Smear rev iewed by technologist. PMV Bld Autoon 02-02-2020 Platelet mean volume (Bld) [Entitic vol] 9.6 fL 8.7-12.4 [facility] Work Phone: Platelet # Bld Autoon 2019 Platelets (Bld) [#/Vol] 183 10*3/uL 140-440 [facility] Work Phone: RBC # Bld Autoon 02-02-2020 RBC (Bld) [#/Vol] 4.58 10*6/uL 3.5-5.5 [facility] Work Phone: RDW RBC Auto-Rtoon 0 Erythrocyte distribution width (RBC) [Ratio] 12.9 % 11.5-14.5 [facility] Work Phone: WBC # Bld Autoon 02-02-2020 WBC (Bld) [#/Vol] 10.7 10*3/uL 3.9-11.0 [facility] Work Phone: nRBC # Bld Autoon 02-02-2020 Nucleated RBC (Bld) [#/Vol] 0.000 10*3/uL 0-0.012 [facility] Work Phone: nRBC/100 WBC Bld Auto-Rtoon 02-02-2020 Nucleated RBC/100 WBC (Bld) [Ratio] 0.0 % 0-0.2 [facility] Work Phone: Hgb A1c MFr don 01-17-2020 HbA1c (Bld) [Mass fraction] 5.7 % [facility] Work Phone: Comment on above: Suggested Diagnosis HbA1c (%) --------- Diabetic > 6.4 Prediabetes 5.7-6.4 Normal < 5.7 Vital Signs Date Time Vital Sign Value Performing Clinician Beto fall 11-29-2024 09:24-0500 Diastolic blood pressure 96 mm[Hg] Aurora Cheung PA Work Phone: [facility] 11-29-2024 09:24-0500 Systolic blood pressure 170 mm[Hg] Aurora Cheung PA Work Phone: [facility] 11-29-2024 09:03-0500 Body height 190.5 cm Aurora Cheung PA Work Phone: [facility] 11-29-2024 09:03-0500 Body mass index (BMI) [Ratio] 27.02 kg/m2 Aurora Cheung PA Work Phone: [facility] 11-29-2024 09:03-0500 Body weight 98.07 kg Aurora Cheung PA Work Phone: [facility] 11-29-2024 09:03-0500 Heart rate 70 /min Aurora Stevensmer PA Work Phone: [facility] 11-29-2024 09:03-0500 Respiratory rate 16 /min Aurora Hemmer PA Work Phone: [facility] 11-29-2024 09:03-0500 SaO2% (BldA) [Mass fraction] 99 % Aurora Stevensmer PA Work Phone: [facility] 02-14-2024 09:05-0400 Diastolic blood pressure 97 mm[Hg] Nu Mourany [facility] 02-14-2024 09:05-0400 Heart rate 67 /min Nu Mourany [facility] 02-14-2024 09:05-0400 Mean blood pressure 107 mm[Hg] Nu Mourany [facility] 02-14-2024 09:05-0400 Respiratory rate 20 /min Nu Mourany [facility] 02-14-2024 09:05-0400 SaO2% (BldA) [Mass fraction] 91 % Nu Mourany [facility] 02-14-2024 09:05-0400 Systolic blood pressure 126 mm[Hg] Nu Mourany [facility] 02-14-2024 08:55-0400 Diastolic blood pressure 82 mm[Hg] Nu Mourany [facility] 02-14-2024 08:55-0400 Heart rate 65 /min Nu Mourany [facility] 02-14-2024 08:55-0400 Mean blood pressure 95 mm[Hg] Nu Mourany [facility] 02-14-2024 08:55-0400 Respiratory rate 17 /min Nu Mourany [facility] 02-14-2024 08:55-0400 SaO2% (BldA) [Mass fraction] 93 % Nu Mourany [facility] 02-14-2024 08:55-0400 Systolic blood pressure 122 mm[Hg] Nu Mourany [facility] 02-14-2024 08:50-0400 Diastolic blood pressure 80 mm[Hg] Nu Mourany [facility] 02-14-2024 08:50-0400 Heart rate 68 /min Nu Mourany [facility] 02-14-2024 08:50-0400 Mean blood pressure 95 mm[Hg] Nu Mourany [facility] 02-14-2024 08:50-0400 Respiratory rate 15 /min Nu Mourany [facility] 02-14-2024 08:50-0400 SaO2% (BldA) [Mass fraction] 92 % Nu Mourany [facility] 02-14-2024 08:50-0400 Systolic blood pressure 125 mm[Hg] Nu Mourany [facility] 02-14-2024 08:40-0400 Body temperature 97.16 [degF] Nu Mourany [facility] 02-14-2024 08:35-0400 Respiratory rate 18 /min Nu Mourany [facility] 02-14-2024 08:30-0400 Respiratory rate 18 /min Nu Meadurany [facility] 02-14-2024 08:25-0400 Respiratory rate 18 /min Nu Mourany [facility] 02-14-2024 07:20-0400 Blood Pressure Location Nu Mourany [facility] 02-14-2024 07:11-0400 Blood Pressure Location Nu Mourany [facility] 02-14-2024 07:11-0400 Body temperature 97.88 [degF] Nu Mourany [facility] 01-03-2024 10:32-0500 Diastolic blood pressure 86 mm[Hg] Nu Mourany [facility] 01-03-2024 10:32-0500 Mean blood pressure 109 mm[Hg] Nu Mourany [facility] 01-03-2024 10:32-0500 Systolic blood pressure 154 mm[Hg] Nu Mourany [facility] 01-03-2024 10:15-0500 Blood Pressure Location Nu Aguilay [facility] 01-03-2024 10:15-0500 Diastolic blood pressure 105 mm[Hg] Nu Meadurany [facility] 01-03-2024 10:15-0500 Heart rate 80 /min Nu Mourany [facility] 01-03-2024 10:15-0500 Systolic blood pressure 183 mm[Hg] Nu Mourany [facility] 12-28-2022 11:31-0500 Blood Pressure Location Edel AFTAB [facility] 12-28-2022 11:31-0500 Diastolic blood pressure 76 mm[Hg] Edel UGALDE [facility] 12-28-2022 11:31-0500 Heart rate 68 /min Edel UGALDE [facility] 12-28-2022 11:31-0500 Respiratory rate 16 /min Edel UGALDE [facility] 12-28-2022 11:31-0500 Systolic blood pressure 132 mm[Hg] Edel UGALDE [facility] 09-21-2022 09:27-0400 Blood Pressure Location Edel UGALDE [facility] 09-21-2022 09:27-0400 Diastolic blood pressure 76 mm[Hg] Edel UGALDE [facility] 09-21-2022 09:27-0400 Heart rate 72 /min Edel UGALDE [facility] 09-21-2022 09:27-0400 Respiratory rate 16 /min Edel UGALDE [facility] 09-21-2022 09:27-0400 Systolic blood pressure 130 mm[Hg] Edel UGALDE [facility] 09-07-2022 08:33-0400 Blood Pressure Location Edel UGALDE [facility] 09-07-2022 08:33-0400 Diastolic blood pressure 74 mm[Hg] Edel UGALDE [facility] 09-07-2022 08:33-0400 Heart rate 89 /min Edel UGALDE [facility] 09-07-2022 08:33-0400 Respiratory rate 16 /min Edel UGALDE [facility] 09-07-2022 08:33-0400 Systolic blood pressure 128 mm[Hg] Edel UGALDE [facility] 02-02-2020 16:25-0400 BMI (Body Mass Index) 26.9 kg/m2 Family Unavailable [facility] Work Phone: 02-02-2020 16:25-0400 Body Temperature 98.78 [degF] Family Unavailable [facility] Work Phone: 02-02-2020 16:25-0400 Body weight 97.52 kg Family Unavailable [facility] Work Phone: 02-02-2020 16:25-0400 BP Diastolic 68 mm[Hg] Family Unavailable [facility] Work Phone: 02-02-2020 16:25-0400 BP Systolic 126 mm[Hg] Family Unavailable [facility] Work Phone: 02-02-2020 16:25-0400 Height 190.5 cm Family Unavailable [facility] Work Phone: 02-02-2020 16:25-0400 Pulse (Heart Rate) 75 /min Family Unavailable [facility] Work Phone: 02-02-2020 16:25-0400 Respiratory Rate 18 /min Family Unavailable [facility] Work Phone: 02-02-2020 11:40-0400 Pulse Oximetry 93 % Family Unavailable [facility] Work Phone: Encounters Encounter Date Encounter Type Care Provider Facility Start: 12-07-2024 End: 12-07-2024 Bamboo flowsheet Alex Thompson DPM Work Phone: [facility] Start: 12-07-2024 End: 12-07-2024 Bamboo flowsheet Alex Thompson DPM Work Phone: [facility] Start: 12-07-2024 End: 12-07-2024 ambulatory ALEX THOMPSON Not Available Start: 11-29-2024 End: 11-29-2024 Bamboo flowsheet Aurora BURNHAM Work Phone: [facility] Start: 11-29-2024 End: 11-29-2024 Bamboo flowsedgar BURNHAM Work Phone: [facility] Start: 11-29-2024 End: 11-29-2024 ambulatory NU SAN Not Available Start: 11-29-2024 End: 11-29-2024 Patient encounter procedure Aurora BURNHAM Work Phone: [facility] Comment on above: Medicare annual well ness visit, subsequent (Primary Dx); ACP (advance care planning); Cervical radiculopathy; Difficulty sleeping; Idiopathic peripheral neuropathy; Skin sensation disturbance; Spinal stenosis of lumbar region, unspecified whether neurogenic claudication present; Abdominal aortic aneurysm (AAA) without rupture, unspecified part (CMS/HCC); Abnormal EKG; Benign essential hypertension (CMS/HCC); Celiac artery aneurysm (CMS/HCC); Calculus of gallbladder without cholecystitis without obstruction; Esophageal dysphagia; History of colon polyps; Benign 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; Right nephrolithiasis; Anterolisthesis; Facet arthropathy, lumbosacral; Degeneration of intervertebral disc of lumbar region with discogenic back pain; Lumbar spondylosis; Pain in both feet; Primary osteoarthritis involving multiple joints; Primary osteoarthritis of left knee; Primary osteoarthritis of right knee; IGT (impaired glucose tolerance); Overweight; Abnormal results of cardiovascular function studies; Chest pain, unspecified type; Family history of colon cancer; Generalized anxiety disorder (CMS/HCC); Mixed hyperlipidemia (CMS/HCC); Rheumatoid arthritis involving multiple sites, unspecified whether rheumatoid factor present (CMS/HCC); Urinary hesitancy; Rheumatoid arthritis without rheumatoid factor, left hand (CMS/HCC); Rheumatoid arthritis without rheumatoid factor, right hand (CMS/HCC) Asymmetrical sensori neural hearing loss (Primary Dx) Start: 11-29-2024 End: 11-29-2024 ambulatory AURORA CHEUNG Not Available Start: 09-15-2024 End: 09-15-2024 Bamboo flowsheet Geovanny Abreu DPM Work Phone: [facility] Start: 09-15-2024 End: 09-15-2024 Bamboo flowsheet Geovanny Abreu DPM Work Phone: [facility] Start: 09-15-2024 End: 09-15-2024 Patient encounter procedure Geovanny Abreu DPM Work Phone: [facility] Comment on above: Onychomycosis (Prima ry Dx); Pain in both feet; Idiopathic peripheral neuropathy; Corns and callosities; Neuropathy Start: 09-15-2024 End: 09-15-2024 ambulatory GEOVANNY ABREU Not Available Start: 07-13-2024 End: 07-13-2024 Bamboo flowsheet Eric A Felter CLINICAL LABORATORY TECHNICIAN-[employer] Work Phone: [facility] Start: 07-13-2024 End: 07-13-2024 Bamboo flowsheet Eric A Felter CLINICAL LABORATORY TECHNICIAN-[employer] Work Phone: [facility] Start: 07-13-2024 End: 07-13-2024 Office outpatient visit 15 minutes Eric A Felter CLINICAL LABORATORY TECHNICIAN[employer] Work Phone: [facility] Comment on above: Melanocytic nevus of face, other location (Primary Dx); Melanocytic nevus of trunk; Seborrheic keratosis; Lentigines; Arevalo angioma; Actinic keratosis Start: 07-13-2024 End: 07-13-2024 ambulatory ERIC NAJERA Not Available Start: 06-15-2024 End: 06-15-2024 ambulatory NU SAN Not Available Start: 05-29-2024 End: 05-29-2024 ambulatory AURORA CHEUNG Not Available Start: 03-29-2024 End: 03-29-2024 ambulatory TAL MONROE Not Available Start: 03-15-2024 End: 03-15-2024 ambulatory NU Corona VIELKA Not Available Start: 02-14-2024 End: 02-15-2024 ambulatory AURORA CHEUNG Facility:[facility] Start: 02-14-2024 End: 02-14-2024 Patient encounter procedure Nu Velez [facility] Start: 01-03-2024 End: 01-04-2024 ambulatory AURORA CHEUNG Facility:[facility] Start: 01-03-2024 End: 01-03-2024 Patient encounter procedure Nu Velez [facility] [place] Start: 12-29-2023 End: 12-29-2023 Patient encounter procedure [facility] - Renae Love [facility] Comment on above: Asymmetrical sensori neural hearing loss (Primary Dx) Start: 12-29-2023 End: 12-29-2023 ambulatory NU SAN Not Available Start: 12-15-2023 End: 12-15-2023 ambulatory NU Corona VIELKA Not Available Start: 11-25-2023 ambulatory AURORA CHEUNG Facility:[facility] Start: 04-01-2023 End: 04-02-[address] TAL MONROE Facility:[facility] Start: 02-27-2023 End: 02-28-2023 ambulatory RHONDA DOTSON Facility:[facility] Start: 01-26-2023 End: 01-27-2023 ambulatory RHONDA DOTSON Facility:[facility] Start: 01-12-2023 End: 01-12-2023 ambulatory RHONDA MAURI [facility] Start: 12-28-2022 End: 12-28-2022 Patient encounter procedure Edel UGALDE [facility] Start: 09-21-2022 End: 09-21-2022 Patient encounter procedure Edel UGALDE [facility] Start: 09-07-2022 End: 09-07-2022 Patient encounter procedure Edel UGALDE [facility] Start: 09-03-2022 Encounter for other preprocedural examination DR EDEL UGALDE . The Start: 09-03-2022 Encounter for preprocedural laboratory examination DR EDEL UGALDE . The Start: 09-03-2022 End: 09-04-[address] EDEL UGALDE . Facility:[facility] Start: 08-31-2022 End: 09-01-[address] EDEL UGALDE . Facility:[facility] Start: 08-31-2022 End: 09-01-2022 Encounter for preprocedural laboratory examination DR EDEL UGALDE . Facility:[facility] Start: 08-05-2022 Encounter for preprocedural cardiovascular examination DR EDEL UGALDE . The Start: 08-05-2022 Encounter for preprocedural laboratory examination DR EDEL UGALDE . The Start: 07-31-2022 End: 08-01-[address] EDEL UGALDE . Facility:[facility] Start: 07-31-2022 End: 08-01-2022 Encounter for preprocedural cardiovascular examination DR EDEL UGALDE . Facility:[facility] Start: 07-20-2022 End: 07-20-[address] EDEL UGALDE . Facility:[facility] Start: 06-01-2022 End: 06-01-[address] DOCTOR CANDELARIO Facility:[facility] Start: 02-01-2020 End: 02-02-2020 Admission to day surgery Family Unavailable [facility] Start: 01-17-2020 Patient encounter procedure Family Unavailable 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[employer] Work Phone: Start: 02-14-2024 Colonoscopy Eric Najera CLINICAL LABORATORY TECHNICIAN- [employer] Work Phone: Start: 02-14-2024 Colonoscopy Nu Velez Start: 05-18-2023 End: 05-29-2024 H/O: surgery History of surgical procedure Joelle Love Start: 09-03-2022 Transurethral prostatectomy Edel UGALDE Start: 02-01-2020 Diagnostic radiography of lumbar spine Family Unavailable Start: 02-01-2020 Fluoroscopy during operation Family Unavailable Start: 02-01-2020 Laminectomy Family Unavailable Start: 11-22-2008 Transurethral prostatectomy Edel UGALDE After-cataract of bilateral eyes Edel UGALDE Appendectomy Edel UGALDE Colonoscopy Edel UGALDE Herniated structure (morphologic abnormality) Edel UGALDE Tonsillectomy Edel UGALDE Plan of Treatment Date Care Activity Detail Author Start: 02-13-2034 Screening for malign ant neoplasm of colon [facility] Start: 11-29-2025 Medicare Annual Well ness (AWV) Medicare Annual Wellness (AWV) [facility] Start: 07-16-2025 End: 07-16-2025 Patient encounter procedure 07/16/2025 9:05 AM EDT Office Visit [facility] [address] [place] [address] Eric Najera, CLINICAL LABORATORY TECHNICIAN-[employer] [address] [place] [address] [facility] Start: 05-29-2025 Medicare Annual Well ness (AWV) Medicare Annual Wellness (AWV) [facility] Start: 05-29-2025 End: 05-29-2025 Patient encounter procedure 05/29/2025 9:00 AM EDT Office Visit [facility] [address] [place] [address] Aurora Cheung PA [address] [facility] [address] [place] [address] [facility] Start: 12-07-2024 End: 12-07-2024 Patient encounter procedure 12/07/2024 9:00 AM EST Procedure Visit [facility] [address] [place] [phone] Alex Thompson DPM [address] [place] [address] Onychomycosis (Primary Dx) [facility] Comment on above: Onychomycosis (Prima ry Dx) Start: 11-29-2024 End: 11-29-2024 Patient encounter procedure [facility] Comment on above: Arrived Start: 11-08-2024 End: 11-08-2024 Patient encounter procedure 11/08/2024 10:30 AM EST Office Visit [facility] [address] [facility] [address] [place] [phone] [facility] Start: 09-15-2024 End: 09-15-2024 Patient encounter procedure [facility] Comment on above: Arrived Start: 07-23-2024 Influenza vaccination Influenza Vacc ine (#1) [facility] Start: 07-13-2024 End: 07-13-2024 Patient encounter procedure [facility] Comment on above: Arrived Start: 05-29-2024 End: 05-29-2024 Patient encounter procedure 05/29/2024 9:00 AM EDT Office Visit [facility] [address] [facility] [address] [place] [address] Aurora Cheung, PA [address] [facility] [address] [place] [address] [facility] Start: 05-19-2024 Medicare Annual Well ness (AWV) Medicare Annual Wellness (AWV) [facility] Start: 03-15-2024 End: 03-15-2024 Patient encounter procedure 03/15/2024 8:30 AM EDT Procedure Visit [facility] [address] [place] [phone] Nu San DPM [address] [place] [address] [facility] Start: 1950 Screening for malign ant neoplasm of colon [facility] Immunizations Immunization Date Immunization Notes Care Provider Fa cili 08-28-2024 influenza, high dose seasonal, preservative-free Aurora Cheung PA Work Phone: [facility] 08-28-2024 influenza virus vaccine, unspecified formulation Geovanny WEBSTERM Work Phone: [facility] 09-16-2023 influenza virus vaccine, unspecified formulation Nu Velez [facility] 09-16-2023 Influenza, High-dose Seasonal, Quadrivalent, Preservative Free [facility] 10-13-2022 influenza virus vaccine, unspecified formulation Nu Velez [facility] 10-13-2022 influenza, high dose seasonal, preservative-free [facility] 05-12-2022 pneumococcal polysaccharide vaccine, 23 valent [facility] 05-04-2022 pneumococcal conjuga te vaccine, 13 valent [facility] 08-11-2021 influenza virus vaccine, unspecified formulation Nu Velez [facility] 08-11-2021 influenza, seasonal, injectable [facility] 02-11-2021 SARS-CoV-2 (COVID-19 ) mRNA BNT-162b2 vax Nu Velez [facility] 01-20-2021 SARS-CoV-2 (COVID-19 ) mRNA BNT-162b2 vax Nu Velez [facility] 09-17-2020 influenza virus vaccine, unspecified formulation Nu Velez [facility] 09-17-2020 influenza, injectabl e, quadrivalent, preservative free [facility] 08-23-2019 Influenza, injectabl e, Madin Mary Canine Kidney, quadrivalent with preservative [facility] 10-16-2018 tetanus toxoid, redu hunter diphtheria toxoid, and acellular pertussis vaccine, adsorbed [facility] 09-06-2018 Influenza, High-dose Seasonal, Quadrivalent, Preservative Free [facility] 09-07-2017 influenza virus vaccine, unspecified formulation Nu Velez [facility] 09-07-2017 Influenza, High-dose Seasonal, Quadrivalent, Preservative Free [facility] 12-29-2016 pneumococcal polysaccharide vaccine, 23 valent [facility] 08-28-2016 influenza virus vaccine, unspecified formulation Nu Velez [facility] 08-28-2016 influenza, injectabl e, quadrivalent, preservative free [facility] 08-26-2015 seasonal influenza, intradermal, preservative free [facility] 09-06-2014 seasonal influenza, intradermal, preservative free [facility] NEGATED: Highlighted row has not occurred!07-03-2022 SARS-CoV-2 mRNA (tozinameran 5y-11y) vaccine Edel UGALDE [facility] Payers Date Payer Category Payer Medicare ANTHEM MEDICARE ADVANTAGE ANTH MEDICARE ADVANTAGE [id number] 2022-Present [address] [place] [address] [id number] 2022 Medicare (Managed Care) BIJU NAJERA ADVANTAGE [id number] 2019 Blue Cross Blue Shield BLUE CROS S OUT OF STATE [facility] [id number] 1959 Medicare [id number] 1959 Unknown [id number] 1950 Unknown [id number] 2.16.840.1.163177.3.579. 2.593 1949 Unknown [id number] 2.16.840.1.201839.3.579. 2.593 1949 Unknown [id number] 2.16.840.1.002818.3.579. 2.593 1949 Unknown [id number] 2.16.840.1.290776.3.579. 2.593 1949 Unknown [id number] 2.16.840.1.974827.3.579. 2.593 1949 Unknown [id number] 2.16.840.1.485585.3.579. 2.593 1949 Unknown [id number] 2.16.840.1.913131.3.579. 2.593 1949 Unknown [id number] 2.16.840.1.503937.3.579. 2.593 1949 Unknown [id number] 2.16.840.1.214844.3.579. 2.727 1949 Unknown [id number] 2.16.840.1.128134.3.579. 2.727 1949 Unknown [id number] 2.16.840.1.637463.3.579. 2.1259 1949 Unknown [id number] 2.16.840.1.320978.3.579. 2.1259 1949 Unknown [id number] 2.16.840.1.995716.3.579. 2.1259 1949 Unknown [id number] 2.16.840.1.340216.3.579. 2.1259 1949 Unknown [id number] 2.16.840.1.105472.3.579. 2.125 1949 Unknown [id number] 2.16.840.1.693795.3.579. 2.1259 1949 Unknown [id number] 2.16.840.1.338323.3.579. 2.125 1949 Unknown [id number] 2.16.840.1.960717.3.579. 2.1259 1949 Unknown [id number] 2.16.840.1.369830.3.579. 2.1259 1949 Unknown [id number] 2.16.840.1.387250.3.579. 2.1259 1949 Unknown [id number] 2.16.840.1.690063.3.579. 2.1259 Social History Date Type Detail Facility Start: 02-01-2020 End: 11-29-2024 Tobacco smoking status [facility] Start: 1950 Sex Assigned At Male [facility] Work Phone: Start: 09-07-2022 End: 05-18-2023 Tobacco smoking status Never smoked tobacco (finding) [facility] Tobacco smoking status Never [facility] Start: 05-18-2023 Tobacco use and exposure Smokeless tobacco non-user [facility] Start: 12-15-2023 End: 11-29-2024 Alcohol intake Current drinker of alcohol (finding) [facility] Start: 12-15-2023 End: 11-29-2024 Alcohol intake [facility] How often to you hav e a drink containing alcohol? 2-3 time sa week [facility] How many standard drinks containing alcohol do you have on a typical day? 3 or 4 [facility] How often do you hav e 6 or more drinks on 1 occasion? Never [facility] Start: 06-25-2023 Alcohol Comment Caffeine intak e: coffee, soda [facility] Start: 1950 Sex Assigned At Not on file [facility] Goals Date Patient Goal Desired Activity /State Functional Status Date Assessment Result Facility 02-14-2024 Functional Status N/A [facility] 01-03-2024 Functional Status N/A [facility] [place] 12-28-2022 Functional Status N/A [facility] 09-21-2022 Functional Status N/A [facility] 09-07-2022 Functional Status N/A [facility] 02-01-2020 Functional status Functional Status [facility] Work Phone: Clinical Notes 09-21-2022 to 11-29-2024 Renae Love MA - 11/29/2024 1:00 PM CHACHA Samayoa - 11/29/2024 9:00 AM Daniel Abreu DPM - 09/15/2024 8:00 AM JOSE Grider - 07/13/2024 10:05 AM EDT Note Date & Type Note Facility 11-29-2024 History of Present illness Narrative Patient was in today for a hearing aid check for end of service contract. Patient is having difficulty with his health information coder. I explained that the health information coder is under warranty and I will do a rapid exchange. His health information coder will not be returned after new health information coder is obtained. Patient also has numerous bt complaints. Patient has an old phone that is not compatible with the hearing aids. He has been told this at past appointments. I did re-pair the aids to the antonina. During the appointment the phone continued to power on and off. Patient states that settings do not hold. I believe this is because the phone bolton on and off. Patient was also concerned with retention. There was some redness present on the top of the ear. I changed patient to a 4M sanipractic physician. Patient was given a pack of small round domes as he has a friend who has hearing aids and his domes are round. Patient's states that it is time for a new phone. Patient will return as needed. Cosigned by ALEXIS Garcia at 12/01/2024 8:32 AM EST documented in this encounter [facility] 11-29-2024 History of Present illness Narrative Images from the original note were not included. HPI Med Refill Additional comments: He would like 2 handicap placards Last edited by Nguyen Mcmillan LPN on 11/29/2024 9:06 AM. Subjective Patient ID: Alf Garibay is a 74 y.o. male who presents for Med Refill (He would like 2 handicap placards). States his balance is not what it used to be, but is aware and is careful. Makes sure he has things to hold on to if going up stairs. Med Refill Pertinent negatives include no abdominal pain, arthralgias, chest pain, chills, congestion, coughing, fatigue, fever, headaches, nausea, numbness, rash, sore throat or vomiting. Medicare Wellness Over the past 2 weeks, how often have you been bothered by any of the following problems? Little interest or pleasure in doing things: Not at all Feeling down, depressed, or hopeless: Not at all Patient Health Questionnaire-2 Score: 0 Over the past 2 weeks, how often have you been bothered by any of the following problems? Trouble falling or staying asleep, or sleeping too much: Not at all Feeling tired or having little energy: Not at all Poor appetite or overeating: Not at all Feeling bad about yourself - or that you are a failure or have let yourself or your family down: Not at all Trouble concentrating on things, such as reading the newspaper or watching television: Not at all Moving or speaking so slowly that other people could have noticed? Or the opposite - being so fidgety or restless that you have been moving around a lot more than usual.: Not at all Thoughts that you would be better off or hurting yourself in some way: Not at all Patient Health Questionnaire-9 Score: 0 Vieyra Fall Risk History of Falling, Immediate or Within 3 Months: No Health Risk Assessment Form Do you need help eating, bathing, using the toilet, dressing, or getting around your home?: No Can you prepare your own meals?: Yes Can you do your own housework without help?: Yes Can you shop for groceries or clothes without help?: Yes Do you exercise for about 20 minutes 3 or more days a week?: No How confident are you that you can control and manage most of your health problems?: Very confident Can you mange your money, credit cards and accounts, pay bills and taxes?: Yes Vision Screening: Yes, no gross abnormalities Hearing Screening: Yes, no gross abnormalities Cognitive Screening Self Assessment: No overt cognitive deficiency is apparent by direct observation Three Word Registration: Village, Kitchen, Baby Clock Drawing: Normal Clock - 2 Three Word Recall: All 3 words correct - 3 Total Score (0-5 Points): 5 Pain Assessment Pain Score: 2 Advance Care Planning Do you have a living will?: Yes Do you have a medical power of biofuels 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 Take with meals. cholecalciferol (Vitamin D-3) 50 MCG (2000 UT) capsule Take 2,000 Units by mouth Daily diclofenac (Voltaren) 75 MG EC tablet Take 1 tablet (75 mg) by mouth in the morning and 1 tablet (75 mg) before bedtime. 200 tablet 3 esomeprazole (NexIUM) [address] capsule 1 capsule Daily as needed. lisinopril-hydroCHLOROthiazide 20-12.5 MG tablet Take 1 tablet by mouth every 12 (twelve) hours 200 tablet 3 Pyridoxine HCl (VITAMIN B-6 PO) Take 1 tablet by mouth 1 (one) time each day. rosuvastatin (Crestor) 20 MG tablet Take 1 tablet (20 mg) by mouth 1 (one) time each day at the same time 100 tablet 3 [DISCONTINUED] ammonium lactate (Lac-Hydrin) 12 % cream Apply topically if needed for dry skin 240 g 3 No current facility-administered medications on file prior to visit. I have reviewed and reconciled the history and medication list with the patient today. Allergies Allergen Reactions Hydroxychloroquine Other Reaction(s): Worsening Joint Pain Social History Tobacco Use Smoking status: Never Smokeless tobacco: Never Vaping Use Vaping status: Never Used Substance Use Topics Alcohol use: Yes Alcohol/week: 3.0 standard drinks of alcohol Types: 3 Standard drinks or equivalent per week Comment: Caffeine intake: coffee, soda Drug use: Never Family History Problem Relation Name Age of Onset Alzheimer's disease Father Diabetes Father Hypertension Father Dementia Father Melanoma Neg Hx Past Medical History: Diagnosis Date Arthritis Bilateral carpal tunnel syndrome 10/05/2016 BPH (benign prostatic hyperplasia) Cholelithiasis 03/2023 DDD (degenerative disc disease), lumbar Diverticulosis Hypertension (CMS/HCC) Lumbar spondylolisthesis Lumbar spondylosis OA (osteoarthritis) Peripheral neuropathy RA (rheumatoid arthritis) (CMS/HCC) Raised prostate specific antigen 06/14/2019 Umbilical hernia 03/2023 Past Surgical History: Procedure Laterality Date APPENDECTOMY 1981 BLADDER SCAN 08/2022 Scope CARPAL TUNNEL RELEASE Left 2015 Dr. Plascencia CARPAL TUNNEL RELEASE Right 09/13/2020 Dr. Plascencia COLONOSCOPY 2002 COLONOSCOPY W/ POLYPECTOMY 02/14/2024 EYE SURGERY 2004 LASIK HERNIA REPAIR 2002 NECK SURGERY 2009 Calcium deposts - Dr. Kahn SPINE SURGERY 1988 L4-L5 bone spur removal - [facility] SPINE SURGERY 2009 L4-L5 scar tissue/arthritis - Dr. Kahn SPINE SURGERY 2019 DrColby Shall Visit Vitals BP (!) 170/96 (BP Location: Left arm) Pulse 70 Resp 16 Ht 6' 3 Wt 216 lb 3.2 oz SpO2 99% BMI 27.02 kg/m Smoking Status Never BSA 2.28 m Review of Systems Constitutional: Negative for chills, fatigue and fever. HENT: Negative for congestion, ear pain, rhinorrhea, sinus pressure and sore throat. Eyes: Negative for pain, discharge and redness. Respiratory: Negative for cough, shortness of breath and wheezing. Cardiovascular: Negative for chest pain, palpitations and leg swelling. Gastrointestinal: Negative for abdominal pain, constipation, diarrhea, nausea and vomiting. Genitourinary: Negative for dysuria, frequency and urgency. Musculoskeletal: Negative for arthralgias and back pain. Skin: Negative for rash. Neurological: Negative for dizziness, numbness and headaches. Psychiatric/Behavioral: Negative for confusion, dysphoric mood and sleep disturbance. Objective Physical Exam Constitutional: General: He is not in acute distress. Appearance: Normal appearance. HENT: Head: Normocephalic and atraumatic. Right Ear: Tympanic membrane and ear canal normal. Decreased hearing noted. Left Ear: Tympanic membrane and ear canal normal. Decreased hearing noted. Ears: Comments: Wears hearing aids bilat Nose: Nose normal. Mouth/Throat: Mouth: Mucous membranes are moist. Pharynx: Oropharynx is clear. Eyes: General: No scleral icterus. Extraocular Movements: Extraocular movements intact. Conjunctiva/sclera: Conjunctivae normal. Pupils: Pupils are equal, round, and reactive to light. Neck: Vascular: No carotid bruit. Cardiovascular: Rate and Rhythm: Normal rate and regular rhythm. Pulses: Normal pulses. Pulmonary: Effort: Pulmonary effort is normal. Breath sounds: Normal breath sounds. No wheezing, rhonchi or rales. Abdominal: General: Bowel sounds are normal. There is no distension. Palpations: Abdomen is soft. Tenderness: There is no abdominal tenderness. There is no guarding. Musculoskeletal: General: No swelling, tenderness or signs of injury. Normal range of motion. Cervical back: Normal range of motion. No tenderness. Comments: Decreased ROM of bilateral knees at extremes due to arthritic change Lymphadenopathy: Cervical: No cervical adenopathy. Skin: General: Skin is warm and dry. Findings: No erythema. Neurological: General: No focal deficit present. Mental Status: He is alert and oriented to person, place, and time. Cranial Nerves: No cranial nerve deficit. Sensory: No sensory deficit. Motor: No weakness. Coordination: Coordination normal. Gait: Gait normal. Psychiatric: Mood and Affect: Mood normal. Behavior: Behavior normal. Thought Content: Thought content normal. Judgment: Judgment normal. Assessment & Plan 1. Medicare annual wellness visit, subsequent (Primary) Reviewed all relevant preventative screenings with the patient in detail. Medicare Wellness form completed and will be scanned into patient's chart. All needed testing was ordered. Will continue with yearly Medicare Wellness exams. 2. ACP (advance care planning) Patient willing to discuss ACP. Pt has Living Will and DPOA in place. 3. Cervical radiculopathy This is a chronic medical condition that is stable since last assessment. No changes in treatment are suggested at this time. Can continue Diclofenac as needed. 4. Difficulty sleeping This is a chronic medical condition that is stable since last assessment. No changes in treatment are suggested at this time. Continue Amitriptyline as prescribed. 5. Idiopathic peripheral neuropathy The patient is seeing a biomedical engineering internship for this condition, treatment is deferred to that specialist. Correspondence from that specialist and any available testing were reviewed during today's visit. 6. Skin sensation disturbance This is a chronic medical condition that is stable since last assessment. No changes in treatment are suggested at this time. 7. Spinal stenosis of lumbar region, unspecified whether neurogenic claudication present This is a chronic medical condition that is stable since last assessment. No changes in treatment are suggested at this time. Can continue Diclofenac as needed. Rx for handicap placard provided. - Handicap Placard [employer] 8. Abdominal aortic aneurysm (AAA) without rupture, unspecified part (CMS/HCC) Stable in appearance on CT Angiogram from 04/03/2024. Will continue to monitor. 9. Abnormal EKG The patient is seeing a biomedical engineering internship for this condition, treatment is deferred to that specialist. Correspondence from that specialist and any available testing were reviewed during today's visit. 10. Benign essential hypertension (CMS/HCC) BP remains elevated on recheck. Pt has known [place]. BP last night at home was 130's/80's. Continue to follow with Cardiology. 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 Will continue to monitor. 12. Calculus of gallbladder without cholecystitis without obstruction This is a chronic medical condition that is stable since last assessment. Denies pain at this time. Will monitor. 13. Esophageal dysphagia No recent symptoms. Will continue to monitor. Reminded pt to take Diclofenac with food. Continue Nexium. 14. History of colon polyps Last Colonoscopy 02/14/2024. Continue with routine monitoring as recommended by specialist. 15. Benign 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 This is a chronic medical condition that is stable since last assessment. No changes in treatment are suggested at this time. 16. Right nephrolithiasis This is a chronic medical condition that is stable since last assessment. Denies pain at this time. Will monitor. 17. Anterolisthesis This is a chronic medical condition that is stable since last assessment. No changes in treatment are suggested at this time. Can continue Diclofenac as needed. 18. Facet arthropathy, lumbosacral This is a chronic medical condition that is stable since last assessment. No changes in treatment are suggested at this time. Can continue Diclofenac as needed. 19. Degeneration of intervertebral disc of lumbar region with discogenic back pain This is a chronic medical condition that is stable since last assessment. No changes in treatment are suggested at this time. Can continue Diclofenac as needed. 20. Lumbar spondylosis This is a chronic medical condition that is stable since last assessment. No changes in treatment are suggested at this time. Can continue Diclofenac as needed. 21. Pain in both feet The patient is seeing a biomedical engineering internship for this condition, treatment is deferred to that specialist. Correspondence from that specialist and any available testing were reviewed during today's visit. 22. Primary osteoarthritis involving multiple joints This is a chronic medical condition that is stable since last assessment. No changes in treatment are suggested at this time. Can continue Diclofenac as needed. 23. Primary osteoarthritis of left knee This is a chronic medical condition that is stable since last assessment. No changes in treatment are suggested at this time. Can continue Diclofenac as needed. 24. Primary osteoarthritis of right knee This is a chronic medical condition that is stable since last assessment. No changes in treatment are suggested at this time. Can continue Diclofenac as needed. 25. IGT (impaired glucose tolerance) This is a chronic medical condition that is stable since last assessment. No changes in treatment are suggested at this time. Will continue to monitor with routine labs. 26. Overweight Encouraged portion control, decrease simple sugars and carbohydrates, gradually increase activity level. Aim for gradual steady weight loss. 27. Abnormal results of cardiovascular function studies The patient is seeing a biomedical engineering internship for this condition, treatment is deferred to that specialist. Correspondence from that specialist and any available testing were reviewed during today's visit. 28. Chest pain, unspecified type The patient is seeing a biomedical engineering internship for this condition, treatment is deferred to that specialist. Correspondence from that specialist and any available testing were reviewed during today's visit. Denies current CP. 29. Family history of colon cancer Last Colonoscopy 02/14/2024. Continue with routine monitoring as recommended by specialist. 30. Generalized anxiety disorder (CMS/HCC) This is a chronic medical condition that is stable since last assessment. No changes in treatment are suggested at this time. 31. Mixed hyperlipidemia (CMS/HCC) This is a chronic medical condition that is stable since last assessment. No changes in treatment are suggested at this time. Will continue to monitor with routine labs. 32. Rheumatoid arthritis involving multiple sites, unspecified whether rheumatoid factor present (CMS/HCC) This is a chronic medical condition that is stable since last assessment. No changes in treatment are suggested at this time. Can continue Diclofenac as needed. 33. Urinary hesitancy This is a chronic medical condition that is stable since last assessment. No changes in treatment are suggested at this time. 34. Rheumatoid arthritis without rheumatoid factor, left hand (CMS/HCC) This is a chronic medical condition that is stable since last assessment. No changes in treatment are suggested at this time. Can continue Diclofenac as needed. 35. Rheumatoid arthritis without rheumatoid factor, right hand (CMS/HCC) This is a chronic medical condition that is stable since last assessment. No changes in treatment are suggested at this time. Can continue Diclofenac as needed. Follow up in about 6 months (around 05/29/2025) for Hypertension. Aurora OBREGON, SHIVAC documented in this encounter [facility] 09-15-2024 History of Present illness Narrative Images from the original note were not included. HPI: Onychomycosis/Toenail Fungus: Location: nails on bilateral feet. Duration: years. Severity of symptoms: hard to trim,hard to reach,curvature of the nails/ingrown nail. Onset: Gradual. Status: The same. Context: Walking,standing,pressure over the toenail,while wearing shoe gear. Characteristics: Thick,discolored,yellow. Severity: mild. Previous Treatment: Trimming the nail,topical over the counter medications. Risk factors: pressure, wearing enclosed shoes. Examination: General Examination: GENERAL EXAMINATIONalert, well hydrated, in no distress , awake, aware of surroundings. FOOT EXAM: 09/15/24 Vascular: DORSALIS PEDIS PULSE:1/4 bilaterally POSTERIOR TIBIAL PULSE:0/4 bilaterally . TEMPERATURE GRADIENT:warm to cool EDEMA:none CAPILLARY FILLING TIME(sec):less than 3 seconds Neurologic: VIBRATORY:Decreased at the first MP joint right greater than left SEMMES-SANDRA 5.07 MONOFILAMENTDecreased light touch sensation distal to the ankle joint right greater than left. Dermatologic: SKIN FINDINGS:Skin is thin and atrophic with diminished hair growth and hyperpigmentary changes bilaterally. HYPERKERATOSIS: Diffuse hyperkeratosis plantar aspects of both feet. No open areas or fissures are noted at this time.. NAIL PATHOLOGY:Toenails are thick brittle crumbling tender and elongated 1 through 10 consistent with onychomycosis. See description below. Nail Pathology: Left Foot: 1 (great toe)Long, Thick, Crumbly, Deformed, Discolored, Brittle, Dystrophic. 2Long, Thick, Crumbly, Deformed, Discolored, Brittle, Dystrophic. 3Long, Thick, Crumbly, Deformed, Discolored, Brittle, Dystrophic. 4Long, Thick, Crumbly, Deformed, Discolored, Brittle, Dystrophic. 5Long, Thick, Crumbly, Deformed, Discolored, Brittle, Dystrophic. Nail Pathology: Right Foot: 1 (great toe)Long, Thick, Crumbly, Deformed, Discolored, Brittle, Dystrophic. 2Long, Thick, Crumbly, Deformed, Discolored, Brittle, Dystrophic. 3Long, Thick, Crumbly, Deformed, Discolored, Brittle, Dystrophic. 4Long, Thick, Crumbly, Deformed, Discolored, Brittle, Dystrophic. 5Long, Thick, Crumbly, Deformed, Discolored, Brittle, Dystrophic. Ankle / Foot: RANGE OF MOTION:normal dorsiflexion and plantar flexion normal inversion and eversion MUSCLE STRENGTH:5/5 Orthopedic: FOOT MORPHOLOGY:planus DEFORMITIES:Mild hammertoes bilaterally. MUSCLE STRENGTH5/5 for all pedal groups tested. Modifier: -Q8. Assessment: 1. Onychomycosis - B35.1 (Primary) 2. Idiopathic peripheral neuropathy - G60.9 3. Pain in left foot - M79.672 4. Pain in right foot - M79.671 5. Spinal stenosis of lumbar region, unspecified whether neurogenic claudication present - M48.061 6. IGT (impaired glucose tolerance) - R73.02 Plan: 1. All mycotic and/or dystrophic nails were debrided in length and thickness by manual and mechanical means. 2. Advised patient of proper foot care to prevent any future complications including daily monitoring of the feet. 3. RTC: 9-12 weeks or as needed if problems arise as patient would like to continue to come in for routine nail care appointments to prevent future pain and problems developing from the overgrowth of the toenails. Callous: 1. Hyperkeratosis/porokeratosis as above noted was debrided. 2. Instructed patient on use of aperture pads or Silipos padding/toe spacers to prevent rubbing and continued development of the hyperkeratosis. 3. Also discussed use of moisturizing creams for overall increased hydration to the skin. 4. Discussed continued use of proper foot gear to avoid excess pressure over the callous site. documented in this encounter [facility] 07-13-2024 History of Present illness Narrative Skin Check Location: Patient requests a skin examination from the waist up Dermatologic history: no history of skin cancer Last visit: 1 year ago Established patient All pertinent medical history, medications, and allergies were reviewed. General Exam: alert , oriented to person, place, and time , normal affect, well appearing Unaccompanied A complete skin exam was offered, pt declined. Areas not examined despite medical recommendation: From the waist down Scalp, Examined Head, Face Examined Neck Examined Chest Examined Back Examined Abdomen Examined Right arm Examined Left arm Examined Hands Examined Digits,nails: Examined Lymphatics: 1. Melanocytic nevus of face, other location Scattered benign appearing, regular brown to light brown melanocytic papules and macules with similar morphology Counseled regarding these benign growths. Rarely, a nevus can develop into malignant melanoma, so any changing nevi should be promptly re-evaluated. 2. Melanocytic nevus of trunk Torso - Posterior (Back) Scattered benign appearing, regular brown to light brown melanocytic papules and macules with similar morphology Counseled regarding these benign growths. Rarely, a nevus can develop into malignant melanoma, so any changing nevi should be promptly re-evaluated. 3. Seborrheic keratosis (3) Arms, Head, Trunk Stuck on verrucous, variably pigmented papules and plaques. Patient was counseled regarding these benign growths. Removal is normally not necessary, but they may be removed if they are symptomatic or for cosmetic reasons. 4. Lentigines (3) Arms, Head, Trunk Scattered farias macules in sun-exposed areas. The patient was informed that lentigines are benign pigmented lesions that occur on sun-exposed and sun-damaged skin. No treatment is necessary. Recommended regular use of broad spectrum sunscreen SPF 30 or higher 5. Arevalo angioma Trunk Scattered arevalo-red papule(s). The patient was informed that angiomas are benign growths on the the skin. No treatment is necessary. 6. Actinic keratosis (2) Left Temporal Scalp, Right Temporal Scalp Erythematous scaly papules Patient was counseled regarding these sun-induced growths that can develop into squamous cell carcinoma if left untreated. Discussed treatment with cryotherapy. It was emphasized that any treated lesions that fail to resolve should be re-evaluated. Cryotherapy performed today; see procedure note Diagnosis: Actinic keratosis Indication: Precancerous Location: see skin exam Consent: Verbal consent was obtained and risks were discussed, including, but not limited to risks of scarring, darker or vibrator equipment tester pigmentary changes, recurrence, incomplete removal and infection. Method: Liquid nitrogen was used to treat the lesion(s) with two 5-10 second freeze-thaw cycles. Number of lesions treated: 2 Post-procedure instructions: Instructions were given orally and in writing. The office will be contacted if the lesion fails to resolve despite treatment, or if a side effect develops such as abnormal crusting, scabbing, redness or tenderness Cryotherapy, skin lesion - Left Temporal Scalp, Right Temporal Scalp Next Visit: 1 year skin exam documented in this encounter [facility] 02-15-2024 Note [id number] [facility] 02-14-2024 Hospital Discharge instructions Patient Education 02/14/2024 08:47:21 Colon Polyps Colon Polyps Colon polyps are tissue growths inside the colon, which is part of the large intestine. They are one of the types of polyps that can grow in the body. A polyp may be a round bump or a mushroom-shaped growth. You could have one polyp or more than one. Most colon polyps are noncancerous (benign). However, some colon polyps can become cancerous over time. Finding and removing the polyps early can help prevent this. What are the causes? The exact cause of colon polyps is not known. What increases the risk? The following factors may make you more likely to develop this condition: Having a family history of colorectal cancer or colon polyps. Being older than 45 years of age. Being younger than 45 years of age and having a significant family history of colorectal cancer or colon polyps or a genetic condition that puts you at higher risk of getting colon polyps. Having inflammatory bowel disease, such as ulcerative colitis or Crohn's disease. Having certain conditions passed from parent to child (hereditary conditions), such as: ?Familial adenomatous polyposis (FAP). ?Mchugh syndrome. ?Turcot syndrome. ?Peutz Jeghers syndrome. ?MUTYH-associated polyposis (MAP). Being overweight. Certain lifestyle factors. These include smoking cigarettes, drinking too much alcohol, not getting enough exercise, and eating a diet that is high in fat and red meat and low in fiber. Having had childhood cancer that was treated with radiation of the abdomen. What are the signs or symptoms? Many times, there are no symptoms. If you have symptoms, they may include: Blood coming from the rectum during a bowel movement. Blood in the stool (feces). The blood may be bright red or very dark in color. Pain in the abdomen. A change in bowel habits, such as constipation or diarrhea. How is this diagnosed? This condition is diagnosed with a colonoscopy. This is a procedure in which a lighted, flexible scope is inserted into the opening between the buttocks (anus) and then passed into the colon to examine the area. Polyps are sometimes found when a colonoscopy is done as part of routine cancer screening tests. How is this treated? This condition is treated by removing any polyps that are found. Most polyps can be removed during a colonoscopy. Those polyps will then be tested for cancer. Additional treatment may be needed depending on the results of testing. Follow these instructions at home: Eating and drinking Eat foods that are high in fiber, such as fruits, vegetables, and whole grains. Eat foods that are high in calcium and vitamin D, such as milk, cheese, yogurt, eggs, liver, fish, and broccoli. Limit foods that are high in fat, such as fried foods and desserts. Limit the amount of red meat, precooked or cured meat, or other processed meat that you eat, such as hot dogs, sausages, stoner, or meat loaves. Limit sugary drinks. Lifestyle Maintain a healthy weight, or lose weight if recommended by your health care provider. Exercise every day or as told by your health care provider. Do not use any products that contain nicotine or tobacco, such as cigarettes, e-cigarettes, and chewing tobacco. If you need help quitting, ask your health care provider. Do not drink alcohol if: ?Your health care provider tells you not to drink. ?You are , may be , or are planning to become . If you drink alcohol: ?Limit how much you use to: ?0 1 drink a day for women. ?0 2 drinks a day for men. ?Know how much alcohol is in your drink. In the [place] one drink equals one 12 oz bottle of beer (355 mL), one 5 oz glass of wine (148 mL), or one 1 oz glass of hard liquor (44 mL). General instructions Take koip-mdt-jijweec and prescription medicines only as told by your health care provider. Keep all follow-up visits. This is important. This includes having regularly scheduled colonoscopies. Talk to your health care provider about when you need a colonoscopy. Contact a health care provider if: You have new or worsening bleeding during a bowel movement. You have new or increased blood in your stool. You have a change in bowel habits. You lose weight for no known reason. Summary Colon polyps are tissue growths inside the colon, which is part of the large intestine. They are one type of polyp that can grow in the body. Most colon polyps are noncancerous (benign), but some can become cancerous over time. This condition is diagnosed with a colonoscopy. This condition is treated by removing any polyps that are found. Most polyps can be removed during a colonoscopy. This information is not intended to replace advice given to you by your health care provider. Make sure you discuss any questions you have with your health care provider. Document Revised: 02/26/2021 Document Reviewed: 02/26/2021 [employer] Patient Education 2022 [employer]. 02/14/2024 08:08:40 Colonoscopy, Adult, Care After Colonoscopy, Adult, Care After The following information offers guidance on how to care for yourself after your procedure. Your health care provider may also give you more specific instructions. If you have problems or questions, contact your health care provider. What can I expect after the procedure? After the procedure, it is common to have: A small amount of blood in your stool for 24 hours after the procedure. Some gas. Mild cramping or bloating of your abdomen. Follow these instructions at home: Eating and drinking Drink enough fluid to keep your urine pale yellow. Follow instructions from your health care provider about eating or drinking restrictions. Resume your normal diet as told by your health care provider. Avoid heavy or fried foods that are hard to digest. Activity Rest as told by your health care provider. Avoid sitting for a long time without moving. Get up to take short walks every 1 2 hours. This is important to improve blood flow and breathing. Ask for help if you feel weak or unsteady. Return to your normal activities as told by your health care provider. Ask your health care provider what activities are safe for you. Managing cramping and bloating Try walking around when you have cramps or feel bloated. If directed, apply heat to your abdomen as told by your health care provider. Use the heat source that your health care provider recommends, such as a moist heat pack or a heating pad. ?Place a towel between your skin and the heat source. ?Leave the heat on for 20 30 minutes. ?Remove the heat if your skin turns bright red. This is especially important if you are unable to feel pain, heat, or cold. You have a greater risk of getting burned. General instructions If you were given a sedative during the procedure, it can affect you for several hours. Do not drive or operate machinery until your health care provider says that it is safe. For the first 24 hours after the procedure: ?Do not sign important documents. ?Do not drink alcohol. ?Do your regular daily activities at a slower pace than normal. ?Eat soft foods that are easy to digest. Take lylh-kaq-bugntqm and prescription medicines only as told by your health care provider. Keep all follow-up visits. This is important. Contact a health care provider if: You have blood in your stool 2 3 days after the procedure. Get help right away if: You have more than a small spotting of blood in your stool. You have large blood clots in your stool. You have swelling of your abdomen. You have nausea or vomiting. You have a fever. You have increasing pain in your abdomen that is not relieved with medicine. These symptoms may be an emergency. Get help right away. Call 911. Do not wait to see if the symptoms will go away. Do not drive yourself to the hospital. Summary After the procedure, it is common to have a small amount of blood in your stool. You may also have mild cramping and bloating of your abdomen. If you were given a sedative during the procedure, it can affect you for several hours. Do not drive or operate machinery until your health care provider says that it is safe. Get help right away if you have a lot of blood in your stool, nausea or vomiting, a fever, or increased pain in your abdomen. This information is not intended to replace advice given to you by your health care provider. Make sure you discuss any questions you have with your health care provider. Document Revised: 07/01/2022 Document Reviewed: 07/01/2022 [employer] Patient Education 2022 [employer]. Follow Up Care 01/03/2024 11:13:09 With:Rosie MEJIA, NEGRA Mireles Address: [facility] [address] [address] [address] [phone] When:1 to 2 weeks only if needed Comments:Call for any problems. [facility] 12-29-2023 History of Present illness Narrative Patient was in today for a 6 week follow up on new hearing aids. Patient is hearing better and likes the hearing aids. He is concerned because the aids sometimes work partially back out of his ear. At the last appointment we added retention lines. Patient states these did not help and he took them off of the hearing aids. Patient likes the longer wire on the right hearing aid but not on the left. I changed the left aid back to his 3M sanipractic physician wire and kept a small closed dome. Patient was counseled on the hearing aids repositioning a bit from talking, laughing and chewing. Patient states his friends also have to push their hearing aids in sometimes. 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 He will call with questions or concerns prior to the appointment. Size 4M wire was saved in audiology office. documented in this encounter [facility] 01-12-2023 Note Cardiovascular Medic [facility] SUBJECTIVE Chief Complaint Patient presents with Hypertension Hyperlipidemia Alf Garibay is a 72 y.o. male here for follow-up. HPI He denies any changes since last seen. He had c/o joint pain. He stopped taking his carvedilol and his pain improved. BP at home is runing 140-110/80s, HR 70-80 before his evening medications. Denies CP, dyspnea, GRESHAM, orthopnea, PND, LE edema, dizziness/LH, palpitations, syncope. Patient Active Problem List Diagnosis Abnormal results of cardiovascular function studies Acquired spondylolisthesis Acute upper respiratory infection Bilateral carpal tunnel syndrome Benign prostatic hyperplasia BPH with urinary obstruction Cervical radiculopathy Chest pain Degeneration of lumbar intervertebral disc Difficulty sleeping Electrocardiogram abnormal Generalized anxiety disorder Benign essential hypertension Hypertensive disorder Abnormal glucose level Impaired glucose tolerance test Lumbar spondylosis Spinal stenosis of lumbar region Lumbosacral spondylosis without myelopathy Mixed hyperlipidemia Osteoarthritis of knee Primary osteoarthritis Pain in upper limb Raised prostate specific antigen Rheumatoid arthritis (CMS/HCC) Skin sensation disturbance Urinary hesitancy Past Medical History: Diagnosis Date BPH (benign prostatic hyperplasia) Hyperlipidemia Hypertension Family History Problem Relation Name Age of Onset Coronary artery disease Father Stroke Father Hyperlipidemia Father Social History Tobacco Use Smoking status: Never Smokeless tobacco: Never Substance Use Topics Alcohol use: Yes Comment: occasional No Known Allergies ROS Review of Systems Musculoskeletal: Positive for arthritis and joint pain. Neurological: Positive for numbness. All other systems reviewed and are negative. OBJECTIVE Visit Vitals BP (!) 178/101 (BP Location: Left arm, Patient Position: Sitting) Pulse 80 Ht 1.905 m (6' 3 ) Wt 99.8 kg (220 lb) SpO2 98% BMI 27.50 kg/m??? Smoking Status Never BSA 2.3 m??? Medications: Current Outpatient Medications: amitriptyline (Elavil) 25 mg tablet, Take 1 tablet by mouth at bedtime., Disp: , Rfl: diclofenac (Voltaren) 75 mg EC tablet, Take 1 tablet by mouth in the morning and at bedtime., Disp: , Rfl: lisinopriL-hydrochlorothiazide 20-12.5 mg tablet, Take 1 tablet by mouth in the morning and at bedtime., Disp: , Rfl: rosuvastatin (Crestor) 20 mg tablet, Take 10 mg by mouth 1 (one) time each day., Disp: , Rfl: Physical Exam Constitutional: Appearance: Normal appearance. He is normal weight. HENT: Head: Normocephalic and atraumatic. Right Ear: External ear normal. Left Ear: External ear normal. Eyes: Extraocular Movements: Extraocular movements intact. Pupils: Pupils are equal, round, and reactive to light. Neck: Vascular: No carotid bruit. Cardiovascular: Rate and Rhythm: Normal rate and regular rhythm. Pulses: Normal pulses. Heart sounds: Normal heart sounds. Pulmonary: Effort: Pulmonary effort is normal. Breath sounds: Normal breath sounds. Abdominal: General: Bowel sounds are normal. Palpations: Abdomen is soft. Musculoskeletal: General: Normal range of motion. Cervical back: Neck supple. Right lower leg: No edema. Left lower leg: No edema. Skin: General: Skin is warm and dry. Neurological: General: No focal deficit present. Mental Status: He is alert and oriented to person, place, and time. Psychiatric: Mood and Affect: Mood normal. Behavior: Behavior normal. Thought Content: Thought content normal. Judgment: Judgment normal. Labs/Testing/Procedures: Labs 04/2022 Hgb 16.7, plt 187 Cr 0.98, BUN 20, GFR 76, K 4.0, AST 27, ALT 31 Treadmill Cardiolite stress test 03/11/2016 Myocardial perfusion study shows no evidence of ischemia. Jewell treadmill score is +9 placing the patient in the low risk category for coronary artery disease. CTA coronary (11/17/2013) IMPRESSION: Suboptimal study particularly of the LAD and circumflex arteries. The patient's heart rate was at the upper range of normal for the examination on the 64 slice scanner and this may have because motion blurring of the LAD and circumflex. The right coronary artery has a normal course and appears patent with the right dominant circulation. ECHO (03/2012) The left ventricle appears normal in size. 0058 Mild left ventricular hypertrophy. 0059 Global left ventricular systolic function is normal.Visual estimation of the left ventricular ejection fraction is 55-60%. 0060 Moderate diastolic dysfunction is seen by Doppler echo. 0061 The left atrium is mildly enlarged. 0062 The right atrium is mildly enlarged. 0063 The right ventricle is enlarged with normal systolic function. 0064 The tricuspid valve is normal in mobility and thickness, mild regurgitation is noted. 0065 Trivial mitral regurgitat (more content not included)... [facility] 01-12-2023 Note Patient here for 1 y ear follow up hypertension and hyperlipidemia. He stopped taking carvedilol around March 2022 due to myalgias. Says once he stopped it he felt much better. Had labs and ECG in Jul 2022. Denies chest pain and SOB. Review of Systems Musculoskeletal: Positive for arthritis and joint pain. Neurological: Positive for numbness. All other systems reviewed and are negative. [facility] 12-28-2022 Hospital Discharge instructions Patient Education 12/28/2022 08:27:55 Benign Prostatic Hyperplasia Benign Prostatic Hyperplasia Benign prostatic hyperplasia (BPH) is an enlarged prostate gland that is caused by the normal aging process and not by cancer. The prostate is a walnut-sized gland that is involved in the production of semen. It is located in front of the rectum and below the bladder. The bladder stores urine and the urethra is the tube that carries the urine out of the body. The prostate may get bigger as a man gets older. An enlarged prostate can press on the urethra. This can make it harder to pass urine. The build-up of urine in the bladder can cause infection. Back pressure and infection may progress to bladder damage and kidney (renal) failure. What are the causes? This condition is part of a normal aging process. However, not all men develop problems from this condition. If the prostate enlarges away from the urethra, urine flow will not be blocked. If it enlarges toward the urethra and compresses it, there will be problems passing urine. What increases the risk? This condition is more likely to develop in men over the age of 50 years. What are the signs or symptoms? Symptoms of this condition include: Getting up often during the night to urinate. Needing to urinate frequently during the day. Difficulty starting urine flow. Decrease in size and strength of your urine stream. Leaking (dribbling) after urinating. Inability to pass urine. This needs immediate treatment. Inability to completely empty your bladder. Pain when you pass urine. This is more common if there is also an infection. Urinary tract infection (UTI). How is this diagnosed? This condition is diagnosed based on your medical history, a physical exam, and your symptoms. Tests will also be done, such as: A post-void bladder scan. This measures any amount of urine that may remain in your bladder after you finish urinating. A digital rectal exam. In a rectal exam, your health care provider checks your prostate by putting a lubricated, gloved finger into your rectum to feel the back of your prostate gland. This exam detects the size of your gland and any abnormal lumps or growths. An exam of your urine (urinalysis). A prostate specific antigen (PSA) screening. This is a blood test used to screen for prostate cancer. An ultrasound. This test uses sound waves to electronically produce a picture of your prostate gland. Your health care provider may refer you to a specialist in kidney and prostate diseases (urologist). How is this treated? Once symptoms begin, your health care provider will monitor your condition (active surveillance or watchful waiting). Treatment for this condition will depend on the severity of your condition. Treatment may include: Observation and yearly exams. This may be the only treatment needed if your condition and symptoms are mild. Medicines to relieve your symptoms, including: ?Medicines to shrink the prostate. ?Medicines to relax the muscle of the prostate. Surgery in severe cases. Surgery may include: ?Prostatectomy. In this procedure, the prostate tissue is removed completely through an open incision or with a laparoscope or robotics. ?Transurethral resection of the prostate (TURP). In this procedure, a tool is inserted through the opening at the tip of the penis (urethra). It is used to cut away tissue of the inner core of the prostate. The pieces are removed through the same opening of the penis. This removes the blockage. ?Transurethral incision (TUIP). In this procedure, small cuts are made in the prostate. This lessens the prostate's pressure on the urethra. ?Transurethral microwave thermotherapy (TUMT). This procedure uses microwaves to create heat. The heat destroys and removes a small amount of prostate tissue. ?Transurethral needle ablation (TUNA). This procedure uses radio frequencies to destroy and remove a small amount of prostate tissue. ?Interstitial laser coagulation (ILC). This procedure uses a laser to destroy and remove a small amount of prostate tissue. ?Transurethral electrovaporization (TUVP). This procedure uses electrodes to destroy and remove a small amount of prostate tissue. ?Prostatic urethral lift. This procedure inserts an implant to push the lobes of the prostate away from the urethra. Follow these instructions at home: Take ypry-afs-wpayjbt and prescription medicines only as told by your health care provider. Monitor your symptoms for any changes. Contact your health care provider with any changes. Avoid drinking large amounts of liquid before going to bed or out in public. Avoid or reduce how much caffeine or alcohol you drink. Give yourself time when you urinate. Keep all follow-up visits as told by your health care provider. This is important. Contact a health care provider if: You have unexplained back pain. Your symptoms do not get better with treatment. You develop side effects from the medicine you are taking. Your urine becomes very dark or has a bad smell. Your lower abdomen becomes distended and you have trouble passing your urine. Get help right away if: You have a fever or chills. You suddenly cannot urinate. You feel lightheaded, or very dizzy, or you faint. There are large amounts of blood or clots in the urine. Your urinary problems become hard to manage. You develop moderate to severe low back or flank pain. The flank is the side of your body between the ribs and the hip. These symptoms may represent a serious problem that is an emergency. Do not wait to see if the symptoms will go away. Get medical help right away. Call your local emergency services (911 in the [place] Do not drive yourself to the hospital. Summary Benign prostatic hyperplasia (BPH) is an enlarged prostate that is caused by the normal aging process and not by cancer. An enlarged prostate can press on the urethra. This can make it hard to pass urine. This condition is part of a normal aging process and is more likely to develop in men over the age of 50 years. Get help right away if you suddenly cannot urinate. This information is not intended to replace advice given to you by your health care provider. Make sure you discuss any questions you have with your health care provider. Document Released: 11/08/2006 Document Revised: 10/03/2019 Document Reviewed: 12/13/2017 [employer] Patient Education 2020 [employer]. Follow Up Care 09/21/2022 09:41:43 With:AFTAB MEJIA, Edel Zavala, URL Address: [facility] [address], [place] [address]- [phone] When: only if needed [facility] 09-21-2022 Hospital Discharge instructions Patient Education 09/21/2022 09:35:53 Benign Prostatic Hyperplasia Benign Prostatic Hyperplasia Benign prostatic hyperplasia (BPH) is an enlarged prostate gland that is caused by the normal aging process and not by cancer. The prostate is a walnut-sized gland that is involved in the production of semen. It is located in front of the rectum and below the bladder. The bladder stores urine and the urethra is the tube that carries the urine out of the body. The prostate may get bigger as a man gets older. An enlarged prostate can press on the urethra. This can make it harder to pass urine. The build-up of urine in the bladder can cause infection. Back pressure and infection may progress to bladder damage and kidney (renal) failure. What are the causes? This condition is part of a normal aging process. However, not all men develop problems from this condition. If the prostate enlarges away from the urethra, urine flow will not be blocked. If it enlarges toward the urethra and compresses it, there will be problems passing urine. What increases the risk? This condition is more likely to develop in men over the age of 50 years. What are the signs or symptoms? Symptoms of this condition include: Getting up often during the night to urinate. Needing to urinate frequently during the day. Difficulty starting urine flow. Decrease in size and strength of your urine stream. Leaking (dribbling) after urinating. Inability to pass urine. This needs immediate treatment. Inability to completely empty your bladder. Pain when you pass urine. This is more common if there is also an infection. Urinary tract infection (UTI). How is this diagnosed? This condition is diagnosed based on your medical history, a physical exam, and your symptoms. Tests will also be done, such as: A post-void bladder scan. This measures any amount of urine that may remain in your bladder after you finish urinating. A digital rectal exam. In a rectal exam, your health care provider checks your prostate by putting a lubricated, gloved finger into your rectum to feel the back of your prostate gland. This exam detects the size of your gland and any abnormal lumps or growths. An exam of your urine (urinalysis). A prostate specific antigen (PSA) screening. This is a blood test used to screen for prostate cancer. An ultrasound. This test uses sound waves to electronically produce a picture of your prostate gland. Your health care provider may refer you to a specialist in kidney and prostate diseases (urologist). How is this treated? Once symptoms begin, your health care provider will monitor your condition (active surveillance or watchful waiting). Treatment for this condition will depend on the severity of your condition. Treatment may include: Observation and yearly exams. This may be the only treatment needed if your condition and symptoms are mild. Medicines to relieve your symptoms, including: ?Medicines to shrink the prostate. ?Medicines to relax the muscle of the prostate. Surgery in severe cases. Surgery may include: ?Prostatectomy. In this procedure, the prostate tissue is removed completely through an open incision or with a laparoscope or robotics. ?Transurethral resection of the prostate (TURP). In this procedure, a tool is inserted through the opening at the tip of the penis (urethra). It is used to cut away tissue of the inner core of the prostate. The pieces are removed through the same opening of the penis. This removes the blockage. ?Transurethral incision (TUIP). In this procedure, small cuts are made in the prostate. This lessens the prostate's pressure on the urethra. ?Transurethral microwave thermotherapy (TUMT). This procedure uses microwaves to create heat. The heat destroys and removes a small amount of prostate tissue. ?Transurethral needle ablation (TUNA). This procedure uses radio frequencies to destroy and remove a small amount of prostate tissue. ?Interstitial laser coagulation (ILC). This procedure uses a laser to destroy and remove a small amount of prostate tissue. ?Transurethral electrovaporization (TUVP). This procedure uses electrodes to destroy and remove a small amount of prostate tissue. ?Prostatic urethral lift. This procedure inserts an implant to push the lobes of the prostate away from the urethra. Follow these instructions at home: Take ndbg-bzj-ztzeifl and prescription medicines only as told by your health care provider. Monitor your symptoms for any changes. Contact your health care provider with any changes. Avoid drinking large amounts of liquid before going to bed or out in public. Avoid or reduce how much caffeine or alcohol you drink. Give yourself time when you urinate. Keep all follow-up visits as told by your health care provider. This is important. Contact a health care provider if: You have unexplained back pain. Your symptoms do not get better with treatment. You develop side effects from the medicine you are taking. Your urine becomes very dark or has a bad smell. Your lower abdomen becomes distended and you have trouble passing your urine. Get help right away if: You have a fever or chills. You suddenly cannot urinate. You feel lightheaded, or very dizzy, or you faint. There are large amounts of blood or clots in the urine. Your urinary problems become hard to manage. You develop moderate to severe low back or flank pain. The flank is the side of your body between the ribs and the hip. These symptoms may represent a serious problem that is an emergency. Do not wait to see if the symptoms will go away. Get medical help right away. Call your local emergency services (911 in the [place] Do not drive yourself to the hospital. Summary Benign prostatic hyperplasia (BPH) is an enlarged prostate that is caused by the normal aging process and not by cancer. An enlarged prostate can press on the urethra. This can make it hard to pass urine. This condition is part of a normal aging process and is more likely to develop in men over the age of 50 years. Get help right away if you suddenly cannot urinate. This information is not intended to replace advice given to you by your health care provider. Make sure you discuss any questions you have with your health care provider. Document Released: 11/08/2006 Document Revised: 10/03/2019 Document Reviewed: 12/13/2017 [employer] Patient Education 2020 [employer]. Follow Up Care 07/30/2022 10:49:13 With:Edel UGALDE MD, URL Address: [facility] [address], [place] [address]- [phone] When:Within 4 Month(s) Comments:w/ UA [facility] Evaluation + Plan note Future Appointments Appointment Date:09/21/2022 09:30:00 AM Scheduled Provider:Edel UGALDE MD Location:[facility] Appointment Type:URO Office Visit [facility] Evaluation + Plan note Future Appointments Appointment Date:12/28/2022 10:45:00 AM Scheduled Provider:Edel UGALDE MD Location:[facility] Appointment Type:URO Office Visit [facility] Evaluation + Plan note Future Appointments Appointment Date:02/14/2024 08:10:00 AM Scheduled Provider: Location:[facility] Appointment Type:Surgery [facility] [place] Evaluation note Diagnosis Asymmetrical sensorineural hearing loss- Primary Sensorineural hearing loss, asymmetrical [facility] Diagnosis Onychomycosis- Primary Dermatophytosis of nail Pain in both feet Idiopathic peripheral neuropathy Unspecified hereditary and idiopathic peripheral neuropathy Corns and callosities Neuropathy Mononeuritis of unspecified site [facility]* Diagnosis Melanocytic nevus of face, other location- Primary Melanocytic nevus of trunk Benign neoplasm of skin of trunk, except scrotum Seborrheic keratosis Lentigines Arevalo angioma Actinic keratosis [facility]* Diagnosis Medicare annual wellness visit, subsequent- Primary ACP (advance care planning) Other specified counseling Cervical radiculopathy Brachial neuritis or radiculitis nos Difficulty sleeping Unspecified sleep disturbance Idiopathic peripheral neuropathy Unspecified hereditary and idiopathic peripheral neuropathy Skin sensation disturbance Disturbance of skin sensation Spinal stenosis of lumbar region, unspecified whether neurogenic claudication present Abdominal aortic aneurysm (AAA) without rupture, unspecified part (CMS/HCC) Abnormal EKG Nonspecific abnormal electrocardiogram (ECG) (EKG) Benign essential hypertension (CMS/HCC) Essential hypertension, benign 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 Calculus of gallbladder without cholecystitis without obstruction Esophageal dysphagia Dysphagia, pharyngoesophageal phase History of colon polyps Benign 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 Benign localized hyperplasia of prostate with urinary obstruction and other lower urinary tract symptoms (LUTS) Right nephrolithiasis Anterolisthesis Facet arthropathy, lumbosacral Degeneration of intervertebral disc of lumbar region with discogenic back pain Lumbar spondylosis Lumbosacral spondylosis without myelopathy Pain in both feet Primary osteoarthritis involving multiple joints Primary osteoarthritis of left knee Primary osteoarthritis of right knee IGT (impaired glucose tolerance) Impaired glucose tolerance test Overweight Abnormal results of cardiovascular function studies Nonspecific abnormal unspecified cardiovascular function study Chest pain, unspecified type Family history of colon cancer Family history of malignant neoplasm of gastrointestinal tract Generalized anxiety disorder (CMS/HCC) Generalized anxiety disorder Mixed hyperlipidemia (CMS/HCC) Mixed hyperlipidemia Rheumatoid arthritis involving multiple sites, unspecified whether rheumatoid factor present (CMS/HCC) Urinary hesitancy Rheumatoid arthritis without rheumatoid factor, left hand (CMS/HCC) Rheumatoid arthritis without rheumatoid factor, right hand ([facility]) [facility]* Diagnosis Asymmetrical sensorineural hearing loss- Primary Sensorineural hearing loss, asymmetrical [facility] Narrative No data available for this section [facility] Hospital Discharge instructions No data available for this section [facility] progress note No data available for this section [facility] Advance Directives No Advanced Directives Records Found Advance Directive Response Recorded Date/ Time NO NO February 01, 2020 6:00pm Assessments Diagnosis Onset Date Resolution Status Status post lumbar spine negra warren for decompression of spinal cord Active Summary Purpose Family History No Family History Records FoundNo Family History Records Found No data available for this section No data available for this section No Family History Records FoundNo Family History Records Found Additional Source Comments Patient Care team informatio n (unrecognized section and content) 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 Relationship Specialty Start Date End Date Tal Mnoroe MD [address] [place] [address] PCP - Biju SCHNEIDER 02/20/23 Tal Monroe MD [address] [place], [place] [id number] PCP - General Internal Medicine 05/12/23 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 Relationship Specialty Start Date End Date Tal Monroe MD [address] [place] [address] PCP - Biju SCHNEIDER 02/20/23 Tal Monroe MD [address] [place] [address] PCP - General Internal Medicine 05/12/23 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 Relationship Specialty Start Date End Date Tal Monroe MD [address] [place] [address] PCP - Biju SCHNEIDER 02/20/23 Tal Monroe MD [address] [place] [address] PCP - General Internal Medicine 05/12/23 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 Relationship 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 Start Date End Date Tal Monroe MD [address] [place] [address] PCP Mariam Ivy MA 02/20/23 Tal Monroe MD [address] [place] [address] PCP - General Internal Medicine 05/12/23 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 Relationship Specialty Start Date End Date Tal Monroe MD [address] [place] [address] PCP - Biju SCHNEIDER 02/20/23 Tal Monroe MD [address] [place] [address] PCP - General Internal Medicine 05/12/23 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 Relationship Specialty Start Date End Date Tal Monroe MD [address] [place] [address] PCP - Biju SCHNEIDER 02/20/23 Tal Monroe MD [address] [place] [address] PCP - General Internal Medicine 05/12/23 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 Relationship Specialty Start Date End Date Tal Monroe MD [address] [place] [address] PCP - Biju SCHNEIDER 02/20/23 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 Relationship Specialty Start Date End Date Tal Monroe MD [address] [place] [address] PCP - Biju SCHNEIDER 02/20/23 Tal Monroe MD [address] [place] [address] PCP - General Internal Medicine 12/07/24 Aurora Cheung PA [address] [place] [address] 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 12/07/24 (unrecognized sect ion and content) No Status Records FoundNo Status Records FoundNo Status Records FoundNo Status Records Found INFORMATION SOURCE (unrecogn ized section and content) DATE CREATED AUTHOR 01/14/2023 [facility] DATE CREATED AUTHOR AUTHOR'S ORGANIZ ATION 04/04/2023 [facility] DATE CREATED AUTHOR AUTHOR'S ORGANIZ ATION 03/07/2024 [facility] DATE CREATED AUTHOR AUTHOR'S ORGANIZ ATION 12/10/2024 [facility] EPIC Reason for Visit (unrecogniz ed section and content) Reason Comments Hearing Aid Check Reason Comments Skin Check Reason Comments Med Refill He would like 2 hand icap placards FOR RECORDS PERTAINING TO PATIENTS WHO ARE OR HAVE BEEN ENROLLED IN A CHEMICAL DEPENDENCY/SUBSTANCEABUSE PROGRAM, SOME INFORMATION MAY BE OMITTED. This clinical summary was aggregated from multiple sources. Caution should be exercised in using it in the provision of clinical care. This summary normalizes information from multiple sources, and as a consequence, information in this document may materially change the coding, format and clinical context of patient data. In addition, data may be omitted in some cases. CLINICAL DECISIONS SHOULD BE BASED ON THE PRIMARY CLINICAL RECORDS. [employer] provides no warranty or guarantee of the accuracy or completeness of information in this document.
[2025-01-19 15:12] LABS: Basophils Percent Auto 0.4 % (0.2-2.0); Eosinophils Absolute Auto 0.1 10^3/uL (0.0-0.7); Eosinophils Percent Auto 1.2 % (0.9-7.0); Hematocrit 45.9 % (42.0-54.0); Hemoglobin 15.6 g/dL (14.0-18.0); Immature Granulocytes Abs Auto 0.02 10^3/uL (0.00-0.03); Immature Granulocytes Pct Auto 0.3 % (0.0-0.5); Lymphocytes Absolute Auto 2.3 10^3/uL (1.2-3.8); Lymphocytes Percent Auto 34.4 % (20.5-60.0); Mean Corpuscular Hemoglobin 31.8 pg (25.9-34.0); Mean Corpuscular Volume 93.5 fL (80.0-94.0); Mean Platelet Volume 9.2 fL (9.5-13.5); Monocytes Absolute Auto 0.5 10^3/uL (0.3-0.8); Monocytes Percent Auto 7.7 % (1.7-12.0); Neutrophils Absolute Auto 3.8 10^3/uL (1.4-6.5); Platelet Count 190 10^3/uL (150-450); Red Blood Count 4.91 10^6/uL (4.70-6.10); White Blood Count 6.7 10^3/uL (4.0-11.0)
[2025-01-19 15:38] LABS: Alanine Aminotransferase 42 U/L (16-63); Albumin Globulin Ratio 1.2; Albumin Level 4.1 g/dL (3.4-5.0); Alkaline Phosphatase 111 U/L (46-116); Anion Gap 9.6; Aspartate Amino Transferase 27 U/L (15-37); BUN Creatinine Ratio 14.8; Bilirubin Total 0.7 mg/dL (0.2-1.0); Calcium 9.2 mg/dL (8.5-10.1); Carbon Dioxide 32.3 mmol/L (21.0-32.0); Chloride 103 mmol/L (98-107); Estimated GFR (African America >60 (>=60 mL/min/1.73m^2); Estimated GFR (Non-African Ame >60 (>=60 mL/min/1.73m^2); Globulin 3.5 g/dL; Glucose 92 mg/dL (74-106); Potassium 3.9 mmol/L (3.5-5.1); Sodium 141 mmol/L (136-145); Total Protein 7.6 g/dL (6.4-8.2)
== END 2025-01-19 14:52 | disposition home or self-care (01) ==
LOC: LAB 14:53
PROVIDERS: PCP Physician Assistant
DX: I10 Essential (primary) hypertension (principal)
CPT/HCPCS: 36415; 80053; 85025

== ENCOUNTER 2025-03-19 07:34 | Outpatient (OUT) | payer MEDICARE, SELFPAY ==
--- NOTE | 2025-03-19 07:43 | CT_ITS ---
The [address] [address] Patient Name: ALF VERAS MRN: [id number] date: 1950 Sex: M Assigned Patient Location: LAB Current Patient Location: LAB Accession/Order Number: [id number] Exam Date: 03/19/2025 13:53 Report Date: 03/19/2025 13:57 At the request of: COLLEEN CHEUNG Procedure: CT angio abdomen pelvis CTA abdomen and pelvis . CLINICAL DATA: Abdominal Aortic Aneurysm. TECHNIQUE: CT of the abdomen and pelvis was initially performed without contrast. Intravenous contrast-enhanced CT angiography of the abdomen and pelvis was then performed. Axial, sagittal, coronal and volume-rendered three-dimensional reconstructions were created and reviewed. This CT exam was performed using one or more of the following dose reduction techniques: Automated exposure control, adjustment of the mA and/or kV according to patient size, or use of iterative reconstruction technique. COMPARISON: CTA 04/03/2024. FINDINGS: Lung Bases: Minimal atelectasis. Organs:Cholelithiasis. Liver spleen pancreas and adrenal glands all appear unremarkable. 5 mm stone right kidney. Right renal cyst. Left kidney appears unremarkable. Mild calcification of the aorta without aneurysm. There is aneurysmal dilatation of the celiac artery measuring 13 mm, unchanged from the prior study. No critical stenosis or occlusion is seen involving the major branch vessels of the aorta.[ GI: Tiny hiatal hernia. Distal stomach is grossly unremarkable. Small bowel appears nondilated. Colonic diverticulosis.[ Pelvis:[Urinary bladder is grossly unremarkable. Prostatomegaly.] Peritoneum/Retroperitoneum:No free air or free fluid or lymphadenopathy.[ Abd wall/Bones:No acute findings. Fat filled umbilical hernia. Osseous structures demonstrate degenerative change.[ CT/CT angio abdomen pelvis IMPRESSION: 1. Stable aneurysm involving the celiac artery. No CTA evidence of abdominal aortic aneurysm. 2. Cholelithiasis. 3. Right nephrolithiasis. Impression dictated by: Melissa Polanco Jr.OColby 03/19/2025 1:57 PM Dictation Location: [place] [address] Electronically authenticated by: [id number] Y Date: 03/19/2025 13:57
[2025-03-19 08:02] LABS: Estimated GFR (African America >60 (>=60 mL/min/1.73m^2); Estimated GFR (Non-African Ame >60 (>=60 mL/min/1.73m^2)
== END 2025-03-19 07:35 | disposition home or self-care (01) ==
LOC: LAB 07:34
PROVIDERS: Pathology Anatomic Pathology & Clinical Pathology; PCP Physician Assistant; Visit Provider Physician Assistant
DX: I72.8 Aneurysm of other specified arteries (principal); I71.40 Abdominal aortic aneurysm, without rupture, unspecified; K80.20 Calculus of gallbladder without cholecystitis without obstruction; N20.0 Calculus of kidney
CPT/HCPCS: 36415; 74174; 82565; Q9967